=== PATIENT | female | born 1940 ===

== ENCOUNTER 2018-05-22 06:26 | Inpatient (IN) | payer OTHER ==
[2018-05-22 06:59] VITALS: BMI 23.3
--- NOTE | 2018-05-22 07:25 | PDOC ---
History of Present Illness - General Chief Complaint: Back Pain Stated Complaint: FALL Time Seen by Provider: 05/22/18 07:15 - History of Present Illness Initial Comments: 78 year old female with PMH of kidney transplant (2003), "heart murmur", dementia, and NIDDM presenting with fall from bed at home. Per son at home she has been more confused over the past few weeks with weakness. They deny infectious symptoms at home including fevers, chills, nausea, vomiting, urinary symptoms or other issues. Son at home states that she has been overall weaker at home and has fallen a few times and has had worsening memory and overall mental status over the the past few weeks a year. 05/22/18 08:51 Past History - Past Medical History Allergies/Adverse Reactions: Allergies Allergy/AdvReac Type Severity Reaction Status Date / Time RENU Inhibitors Allergy Verified 05/22/18 06:56 Home Medications: Ambulatory Orders Unobtainable 05/22/18 - Suicide/Smoking/Psychosocial Hx Smoking History: Smoker current status UNK Have you smoked in the past 12 months: No Information on smoking cessation initiated: No Hx Alcohol Use: No Drug/Substance Use Hx: No Review of Systems - Review of Systems Constitutional: No: Chills, Diaphoresis, Fever, Loss of Appetite HEENTM: No: Eye Pain, Blurred Vision, Tearing Respiratory: No: Cough, Shortness of Breath, Wheezing Cardiac (ROS): No: Chest Pain, Edema, Irregular Heart Rate ABD/GI: No: Diarrhea, Nausea, Poor Appetite, Vomiting : No: Burning, Dysuria, Hematuria Musculoskeletal: Yes: Back Pain. No: Joint Pain, Joint Swelling Integumentary: Yes: Lesions (sacral decub). No: Bruising Psychiatric: Yes: Other (dementia). No: Change in Appetite Hematologic/Lymphatic: No: Anemia, Blood Clots, Easy Bleeding *Physical Exam - Vital Signs Last Vital Signs Temp Pulse Resp BP Pulse Ox 98.0 F 80 18 168/119 H 99 05/22/18 06:54 05/22/18 06:54 05/22/18 06:54 05/22/18 06:54 05/22/18 06:54 - Physical Exam General Appearance: Yes: Appropriately Dressed, Thin. No: Apparent Distress HEENT: positive: EOMI, SHAHRZAD, Normal ENT Inspection, Normal Voice Neck: positive: Trachea midline, Normal Thyroid, Supple. negative: Tender, Rigid Respiratory/Chest: positive: Lungs Clear, Normal Breath Sounds. negative: Chest Tender, Respiratory Distress, Accessory Muscle Use Cardiovascular: positive: Regular Rhythm, Regular Rate Moderate Sedation - Procedure Monitoring Vital Signs: Procedure Monitoring Vital Signs Temperature 98.0 F 05/22/18 06:54 Pulse Rate 80 05/22/18 06:54 Respiratory Rate 18 05/22/18 06:54 Blood Pressure 168/119 H 05/22/18 06:54 O2 Sat by Pulse Oximetry (%) 99 05/22/18 06:54 ED Treatment Course - LABORATORY CBC & Chemistry Diagram: 05/22/18 07:52 05/22/18 07:52 Medical Decision Making - Medical Decision Making 78 year old female with worsening mental status and falls over the past few weeks presenting after being found down at bedside. Labs and Imaging WNL but patient very weak overall. UA pending. EKG demonstrating rate 78, MO 1990, QRS 116, and QTc 508 without acute ischemic changes. Will admit patient for further workup for the weakness and falls. 05/22/18 09:56 *DC/Admit/Observation/Transfer Diagnosis at time of Disposition: Weakness Falls Qualifiers: Encounter type: initial encounter Qualified Code(s): W19.XXXA - Unspecified fall, initial encounter Failure to thrive Qualifiers: Failure to thrive age range: in adult Qualified Code(s): R62.7 - Adult failure to thrive - Discharge Dispostion Condition at time of disposition: Stable Decision to Admit order: Yes - Referrals - Patient Instructions - Post Discharge Activity
[2018-05-22 08:11] LABS: BASO % 0.5 % (0-2.0); EOS % 1.1 % (0-4.5); HEMATOCRIT 42.2 % (32.4-45.2); HEMOGLOBIN 14.2 GM/dL (10.7-15.3); LYMPH % 13.7 % (8-40); MCH 29.1 pg (25.7-33.7); MCHC 33.6 g/dl (32.0-36.0); MEAN CELL VOLUME 86.6 fl (80-96); MEAN PLT VOLUME 8.1 fl (7.5-11.1); MONO % 6.8 % (3.8-10.2); NEUT % 77.9 % (42.8-82.8); PLATELET COUNT 246 K/MM3 (134-434); RBC 4.87 M/mm3 (3.60-5.2); RDW 15.1 % (11.6-15.6)
[2018-05-22 08:49] LABS: ALBUMIN 3.2 g/dl (3.4-5.0); ALK PHOS 98 U/L (45-117); ANION GAP 9 MMOL/L (8-16); BILIRUBIN,TOTAL 0.5 mg/dL (0.2-1); BLOOD UREA NITROGEN 16 mg/dL (7-18); CALCIUM 9.3 mg/dL (8.5-10.1); CHLORIDE 109 mmol/L (98-107); CO2 24 mmol/L (21-32); CREATININE 0.6 mg/dL (0.55-1.3); GLUCOSE,RANDOM 88 mg/dL (74-106); POTASSIUM 3.7 mmol/L (3.5-5.1); SGOT/AST 24 U/L (15-37); SGPT/ALT 16 U/L (13-61); SODIUM 142 mmol/L (136-145); TOT PROT 7.6 g/dl (6.4-8.2)
[2018-05-22 08:50] LABS: INR 1.12 (0.83-1.09); PROTHROMBIN TIME (PATIENT) 13.2 SEC (9.7-13.0)
--- NOTE | 2018-05-22 09:05 | PDOC ---
Attending Attestation - Resident Resident Name: Abiel Tam - ED Attending Attestation I have performed the following: I have examined & evaluated the patient, The case was reviewed & discussed with the resident, I agree w/resident's findings & plan, Exceptions are as noted - HPI HPI: 05/22/18 09:54 78 year old female c/ hx of renal transplant on cellcept and prograft, DM, "cardiac condition" on afib and metoprolol, ?dementia? presents with found down on ground. Patient is a poor historian. Obtained from the son on the phone. No recent illnesses. Pt lives at home. When son went into her bedroom, found down on the ground. Pt is c/o of lower back pain. No other complaints. - Physicial Exam PE: 05/22/18 09:58 GENERAL: Awake, alert, in no acute distress HEAD: No signs of trauma EYES: EOMI, sclera anicteric, conjunctiva clear ENT: Auricles normal inspection, hearing grossly normal, nares patent, Moist mucosa NECK: Normal ROM, supple. No c-spine tenderness. LUNGS: Breath sounds equal, clear to auscultation bilaterally. No wheezes, and no crackles HEART: Regular rate and rhythm, normal S1 and S2, no murmurs, rubs or gallops ABDOMEN: Soft, nontender, No guarding, no rebound. No masses EXTREMITIES: Normal range of motion, no edema. No clubbing or cyanosis. No cords, erythema, or tenderness BACK: mild TTP ~L4-L5. no stepoffs appreciated. PELVIS: stable and nontender. FROM of bilateral hips. NEUROLOGICAL: Cranial nerves II through XII grossly intact. Normal speech SKIN: Warm, Dry, normal turgor, no rashes or lesions noted. - Medical Decision Making 05/22/18 10:00 Vital Signs Temp Pulse Resp BP Pulse Ox 98.0 F 80 18 168/119 H 99 05/22/18 06:54 05/22/18 06:54 05/22/18 06:54 05/22/18 06:54 05/22/18 06:54 78 year old female with complex medical problems p/w found down on ground. Need to evaluate for trauma with head CT and CT c-spine. Lumbosacral and pelvis radiograph. Also need to evaluate for rhado. Unknown how long on ground. Labs to r/o other etiologies ie metabolic disarray, UTI, etc. Ultimately, given inability to ambulate and son having difficulties caring for patient, will need admission for at least PT and possible NH placement. 05/22/18 10:36 Bilateral pelvic rami fracture and some compression lumbar fractures noted on imaging. Will need spine surgery and ortho consultation. Pain control. Will order pelvis CT for further clarification of pelvis. Pt needs to be admitted. Hemodynamically stable. CBC, BMP 05/22/18 07:52 05/22/18 07:52 CMP Sodium 142 mmol/L (136-145) 05/22/18 07:52 Potassium 3.7 mmol/L (3.5-5.1) 05/22/18 07:52 Chloride 109 mmol/L (98-107) H 05/22/18 07:52 Carbon Dioxide 24 mmol/L (21-32) 05/22/18 07:52 Anion Gap 9 MMOL/L (8-16) 05/22/18 07:52 BUN 16 mg/dL (7-18) 05/22/18 07:52 Creatinine 0.6 mg/dL (0.55-1.3) 05/22/18 07:52 Creat Clearance w eGFR > 60 (>60) 05/22/18 07:52 Random Glucose 88 mg/dL (74-106) 05/22/18 07:52 Calcium 9.3 mg/dL (8.5-10.1) 05/22/18 07:52 Total Bilirubin 0.5 mg/dL (0.2-1) 05/22/18 07:52 AST 24 U/L (15-37) 05/22/18 07:52 ALT 16 U/L (13-61) 05/22/18 07:52 Alkaline Phosphatase 98 U/L (45-117) 05/22/18 07:52 Troponin I 0.04 ng/ml (0.00-0.05) 05/22/18 07:52 Total Protein 7.6 g/dl (6.4-8.2) 05/22/18 07:52 Albumin 3.2 g/dl (3.4-5.0) L 05/22/18 07:52 Heart Score/ECG Review #1 ECG reviewed & interpreted by me at: 07:50 05/22/18 09:03 NSR 78, left axis deviation, low voltage QRS, +LVH, QTC 508 msec
[2018-05-22] MEDS ORDERED: morphine CARPU-JECT 2 MG/1 ML DISP.SYRIN IVPUSH ONE (10:48)
[2018-05-22] MEDS ORDERED: MORPHINE SULFATE 2 MG/ML VIAL ONE (11:04)
[2018-05-22 11:20] LABS: URINE APPEARANCE CLEAR; URINE BILIRUBIN NEGATIVE (<2.0 mg/dL); URINE COLOR YELLOW; URINE GLUCOSE (UA) NEGATIVE (NEGATIVE); URINE KETONE NEGATIVE (NEGATIVE); URINE LEUK ESTERASE NEGATIVE (NEGATIVE); URINE NITRITE NEGATIVE (NEGATIVE); URINE PROTEIN 3+ (NEGATIVE); URINE UROBILINOGEN NEGATIVE mg/dL (0.2-1.0)
[2018-05-22 11:25] LABS: EPI CELLS RARE /HPF (FEW); URINE MUCUS RARE
--- NOTE | 2018-05-22 12:51 | HP ---
CHIEF COMPLAINT: Weakness / Fall PCP: Dr. Aldo Corbett (Nephro) HISTORY OF PRESENT ILLNESS: 78 y/o F w/PMH of kidney transplant (2003), dementia, NIDDM, (possible Afib) presents to the ER for fall and weakness. History was taken from pt although some history was difficult to obtain due to her dementia and some history was taken from other notes. In ER she was reported to have been found on floor by her son this morning and had been getting more weak and confused over the past few weeks. According to the pt she fell 2 days ago but does not remember if she lost consciousness or if she hit her head. She does reports not feeling light-headed or dizzy, no CP, or heart racing at that time. She does not remember the events after the fall. She reports increased urinary frequency and dysuria for 10 days and weakness along this time too. She denies N/V/F/C, abd pain, CP, SOB, cough, light-headedness, blood in stool and reports having her regular BM once daily. She is AAOx2. Son is not at bedside at the time of interview and there is no contact phone number on the chart for son. ER course was notable for: (1) Morphine, CXR, Hip CT, L-spine CT, C-Spine CT, Head CT (2) (3) PAST MEDICAL HISTORY: kidney transplant (2003), dementia, NIDDM, (possible Afib ) - from other notes PAST SURGICAL HISTORY: unable to obtain Social History: Smoking: denies ever smoking Alcohol: denies Drugs: denies Family History: unable to obtain Allergies RENU Inhibitors Allergy (Verified 05/22/18 06:56) HOME MEDICATIONS: Home Medications Medication Instructions Recorded Unobtainable 05/22/18 REVIEW OF SYSTEMS CONSTITUTIONAL: +generalized weakness Absent: fever, chills CARDIOVASCULAR: Absent: chest pain, palpitations, irregular heart rate, lightheadedness RESPIRATORY: Absent: cough, shortness of breath GASTROINTESTINAL: Absent: abdominal pain, nausea, vomiting, diarrhea, constipation, hematochezia GENITOURINARY: +dysuria, frequency Absent: hematuria MUSCULOSKELETAL: +chronic joint pain, no new pains NEUROLOGIC: Absent: headache, dizziness PHYSICAL EXAMINATION Vital Signs - 24 hr 05/22/18 06:54 Temperature 98.0 F Pulse Rate 80 Respiratory 18 Rate Blood Pressure 168/119 H O2 Sat by Pulse 99 Oximetry (%) GENERAL: Awake, alert, and oriented x2 (person and place). In no acute distress. HEAD: Normal with no signs of trauma. EYES: Pupils equal, round and reactive to light. No lid lag. EARS, NOSE, THROAT: Ears normal, nares patent LUNGS: Breath sounds equal, clear to auscultation bilaterally. No wheezes, and no crackles. No accessory muscle use. HEART: Regular rate and rhythm, normal S1 and S2 ABDOMEN: Soft, nontender, not distended, normoactive bowel sounds MUSCULOSKELETAL: No calf tenderness. No knee, ankle or hip pain on palpation. No pain at hip or knees with passive ROM. No pain with log rolling of thighs. LOWER EXTREMITIES: warm, well-perfused. No calf tenderness. PSYCHIATRIC: Cooperative. SKIN: Warm, dry Laboratory Results - last 24 hr 05/22/18 05/22/18 05/22/18 07:47 07:52 07:52 WBC 10.0 RBC 4.87 Hgb 14.2 Hct 42.2 MCV 86.6 MCH 29.1 MCHC 33.6 RDW 15.1 Plt Count 246 MPV 8.1 Absolute Neuts (auto) 7.8 Neutrophils % 77.9 Lymphocytes % 13.7 Monocytes % 6.8 Eosinophils % 1.1 Basophils % 0.5 Nucleated RBC % 0 PT with INR 13.20 H INR 1.12 H Sodium 142 Potassium 3.7 Chloride 109 H Carbon Dioxide 24 Anion Gap 9 BUN 16 Creatinine 0.6 Creat Clearance w eGFR > 60 Random Glucose 88 Calcium 9.3 Total Bilirubin 0.5 AST 24 ALT 16 Alkaline Phosphatase 98 Creatine Kinase 178 Creatine Kinase Index 1.1 CK-MB (CK-2) 2.0 Troponin I 0.04 Total Protein 7.6 Albumin 3.2 L Urine Color Urine Appearance Urine pH Ur Specific [place] Urine Protein Urine Glucose (UA) Urine Ketones Urine Blood Urine Nitrite Urine Bilirubin Urine Urobilinogen Ur Leukocyte Esterase Urine WBC (Auto) Urine RBC (Auto) Ur Epithelial Cells Urine Mucus 05/22/18 11:02 WBC RBC Hgb Hct MCV MCH MCHC RDW Plt Count MPV Absolute Neuts (auto) Neutrophils % Lymphocytes % Monocytes % Eosinophils % Basophils % Nucleated RBC % PT with INR INR Sodium Potassium Chloride Carbon Dioxide Anion Gap BUN Creatinine Creat Clearance w eGFR Random Glucose Calcium Total Bilirubin AST ALT Alkaline Phosphatase Creatine Kinase Creatine Kinase Index CK-MB (CK-2) Troponin I Total Protein Albumin Urine Color Yellow Urine Appearance Clear Urine pH 5.0 Ur Specific [place] 1.027 Urine Protein 3+ H Urine Glucose (UA) Negative Urine Ketones Negative Urine Blood 3+ H Urine Nitrite Negative Urine Bilirubin Negative Urine Urobilinogen Negative Ur Leukocyte Esterase Negative Urine WBC (Auto) 5 Urine RBC (Auto) 47 Ur Epithelial Cells Rare Urine Mucus Rare EKG: NSR @ 78 bpm. LAD. LVH. QTc 508 ms Imaging: C-spine CT, Head CT, CXR, Hip Pelvis XR, L-Spine XR Reviewed. Hip Pelvis XR: Fracture at R superior and inferior pubic rami. Possible L inferior pubic ramus fracture. L-Spine CT: multiple compression fractures likely chronic. Abd/Pelvis CT: Old fractures of R superior and inferior pubic rami. No evidence of acute fracture. ASSESSMENT/PLAN: 78 y/o F w/PMH of kidney transplant (2003), dementia, NIDDM, (possible Afib) presents to the ER for fall and weakness. -Weakness and AMS -Secondary to possible UTI -Pt's mental status has improved since first being brought in. -F/u UCx, UA with RBCs but negative for signs of infection at this time. -F/u TSH, B12 levels -PT -Pelvis fractures -Chronic, Ortho on board, follow ortho recs -Pain control with tylenol -L-spine compression -Multiple compression fractures likely chronic -Neurosurgery consulted, follow recs -Pain control with tylenol -Pericardial effusion seen on abd/pelvis CT (small pericardial effusion) -Echo -Hx of kidney transplant -Dr. Aldo Corbett is her dry wall applicator -attempted to call office multiple times for further information regarding pt but no answer -c/w tacrolimus and mycophenolate -HTN -c/w diltiazem ER 180 mg and metoprolol 50 mg bid -Diabetes -BGMs ACHS, ISS -Hx of Urinary retention -c/w flomax 0.4 mg and bethanecol 25 mg -DVT ppx -heparin 5000 units sq q8h -FEN -No fluids at this time -Monitor electrolytes -Soft diet -Dispo: Admit pt to m/s Visit type - Emergency Visit Emergency Visit: Yes ED Registration Date: 05/22/18 Care time: The patient presented to the Emergency Department on the above date and was hospitalized for further evaluation of their emergent condition. - New Patient This patient is new to me today: Yes Date on this admission: 05/22/18 - Critical Care Critical Care patient: No
--- NOTE | 2018-05-22 13:12 | CONSULT ---
Consult - text type - Consultation Consultation Note: ORTHOPEDIC SURGERY CONSULTATION NOTE Department of Orthopedic Surgery HISTORY OF PRESENT ILLNESS Roslyn Obando is a 78 year old female with a PMH of renal transplant, DM, and dementia who presents to [facility] with after a fall. The orthopedic service was consulted for a right pubic ramus fracture. The patient was found down on the ground by her son. The patient is a poor historian. History was obtained by the patient and the patient's record. The patient notes pain in the back and right hip. Denies numbness, tingling or other constitutional complaints. The patient lives with her son. FAMILY HISTORY Unknown REVIEW OF SYMPTOMS A twelve-point review of systems was performed and was negative except as noted in HPI. PHYSICAL EXAM Constitutional: Alert. Confused but able to follow commands. No acute distress. Neck and Back: No cervical tenderness to palpation. Tenderness to palpation over lumbar paralspinal muscles. No midline tenderness or step-offs. Right Upper Extremity: No tenderness to palpation. Full passive and active ROM, free from pain. 2+ radial pulses; Cap refill brisk. Left Upper Extremity: No tenderness to palpation. Full passive and active ROM, free from pain. 2+ radial pulses; Cap refill brisk. Right Lower Extremity: Skin warm, dry, and intact; no lesions, rashes or ulcers noted. Muscle mass equal and symmetric to contralateral side. No masses or effusions noted. No tenderness to palpation. No cords or calf tenderness. No significant calf/ankle edema. Able to straight leg raise. Negative log roll. Full passive and active ROM, free from pain. EHL/TA/GS motor intact; SILT distally; 2+ DP pulses; Cap refill brisk. Tone and reflexes normal. Left Lower Extremity: Skin warm, dry, and intact; no lesions, rashes or ulcers noted. Muscle mass equal and symmetric to contralateral side. No masses or effusions noted. No tenderness to palpation. No cords or calf tenderness. No significant calf/ankle edema. Able to straight leg raise. Negative log roll. Full passive and active ROM, free from pain. EHL/TA/GS motor intact; SILT distally; 2+ DP pulses; Cap refill brisk. Tone and reflexes normal. Active Problems Problem Status Category Onset Failure to thrive Acute Medical Falls Acute Medical Weakness Acute Medical Social History Smoking history Smoker current status UNK Hx Alcohol Use No Allergies Allergy/AdvReac Type Severity Reaction Status Date / Time RENU Inhibitors Allergy Verified 05/22/18 06:56 Vital Signs (last) Temp Pulse Resp BP Pulse Ox 98.0 F 80 18 168/119 H 99 05/22/18 06:54 05/22/18 06:54 05/22/18 06:54 05/22/18 06:54 05/22/18 06:54 Intake and Output 05/20/18 05/21/18 05/22/18 23:59 23:59 23:59 Other: Weight 140 lb Height 5 ft 5 in Body Mass Index (BMI) 23.3 Weight Measurement Method Est/Stated by Patient Laboratory 05/22/18 07:52 05/22/18 07:52 PT with INR 13.20 SEC (9.7-13.0) H 05/22/18 07:47 IMAGING I personally reviewed all radiographs, CT, and other imaging. They demonstrate a left hip cemented hemiarthoplasty in good positioning with no signs of loosening. There are right-sided chronic appearing pubic rami fractures. There is lumbar spondylosis with a acute vs chronic severe compression fracture at L1 and moderate compression fractures of L4 and L5. ASSESSMENT AND PLAN Roslyn Obando is a 78 year old female presenting status post fall with multiple lumbar vertebral compression fractures and (2) right sided pubic rami fractures. These fractures appear chronic, but an acute or subacute component can not be determined with current images available. There is no hip fracture or periprosthetic femur fracture. We have reviewed the imaging and clinical findings in detail, as well as their potential implications. - FU Neurosurgery recommendations regarding vertebral compression fractures - WBAT with assistance - Physical therapy - Pain control - DVT prophylaxis All questions were answered. Thank you for involving our team in the care of this patient. Please have patient follow up in our office in 1-2 weeks [phone].
--- NOTE | 2018-05-22 14:07 | PN ---
Teaching Attending Note Name of Resident: Rashad Luis ATTENDING PHYSICIAN STATEMENT I saw and evaluated the patient. I reviewed the resident's note and discussed the case with the resident. I agree with the resident's findings and plan as documented. SUBJECTIVE: No complaints. Unsure why she is here. Admits to fall, unclear when. Denies chest pain/palpitations/lightheadedness/HI. OBJECTIVE: Afebrile, Hemodynamically Stable Last Vital Signs Temp Pulse Resp BP Pulse Ox 98.0 F 78 18 145/98 100 05/22/18 06:54 05/22/18 13:10 05/22/18 13:10 05/22/18 13:10 05/22/18 13:10 HEENT - Atraumatic, Normocephalic. Temporal wasting. Heart - S1, S2, SM Lungs - clear to lungs. No crackles/wheeze. Abdomen - soft, non-tender. Bowel Sounds normal. Extremities - no edema, no calf tenderness. Neuro - AAO x 1-2. Tone/Power normal all 4 extremities. Laboratory Results - last 24 hr 05/22/18 05/22/18 05/22/18 07:47 07:52 07:52 WBC 10.0 RBC 4.87 Hgb 14.2 Hct 42.2 MCV 86.6 MCH 29.1 MCHC 33.6 RDW 15.1 Plt Count 246 MPV 8.1 Absolute Neuts (auto) 7.8 Neutrophils % 77.9 Lymphocytes % 13.7 Monocytes % 6.8 Eosinophils % 1.1 Basophils % 0.5 Nucleated RBC % 0 PT with INR 13.20 H INR 1.12 H Sodium 142 Potassium 3.7 Chloride 109 H Carbon Dioxide 24 Anion Gap 9 BUN 16 Creatinine 0.6 Creat Clearance w eGFR > 60 Random Glucose 88 Calcium 9.3 Total Bilirubin 0.5 AST 24 ALT 16 Alkaline Phosphatase 98 Creatine Kinase 178 Creatine Kinase Index 1.1 CK-MB (CK-2) 2.0 Troponin I 0.04 Total Protein 7.6 Albumin 3.2 L Urine Color Urine Appearance Urine pH Ur Specific [place] Urine Protein Urine Glucose (UA) Urine Ketones Urine Blood Urine Nitrite Urine Bilirubin Urine Urobilinogen Ur Leukocyte Esterase Urine WBC (Auto) Urine RBC (Auto) Ur Epithelial Cells Urine Mucus 05/22/18 11:02 WBC RBC Hgb Hct MCV MCH MCHC RDW Plt Count MPV Absolute Neuts (auto) Neutrophils % Lymphocytes % Monocytes % Eosinophils % Basophils % Nucleated RBC % PT with INR INR Sodium Potassium Chloride Carbon Dioxide Anion Gap BUN Creatinine Creat Clearance w eGFR Random Glucose Calcium Total Bilirubin AST ALT Alkaline Phosphatase Creatine Kinase Creatine Kinase Index CK-MB (CK-2) Troponin I Total Protein Albumin Urine Color Yellow Urine Appearance Clear Urine pH 5.0 Ur Specific [place] 1.027 Urine Protein 3+ H Urine Glucose (UA) Negative Urine Ketones Negative Urine Blood 3+ H Urine Nitrite Negative Urine Bilirubin Negative Urine Urobilinogen Negative Ur Leukocyte Esterase Negative Urine WBC (Auto) 5 Urine RBC (Auto) 47 Ur Epithelial Cells Rare Urine Mucus Rare Current Medications Generic Name Dose Route Start Last Admin Trade Name Freq PRN Reason Stop Dose Admin Acetaminophen 650 mg 05/22/18 13:42 Tylenol - PO Q6H PRN PAIN 1-3 Heparin Sodium (Porcine) 5,000 unit 05/22/18 14:00 Heparin - SQ TID [facility] Insulin Aspart 1 vial 05/22/18 16:30 Novolog Vial Sliding Scale - SQ ACHS [facility] Protocol Home Medications Medication Instructions Recorded Bethanechol Chloride 25 mg PO 05/22/18 Diltiazem HCl [Diltiazem 24Hr ER] 180 mg PO DAILY 05/22/18 Metoprolol Tartrate 50 mg PO BID 05/22/18 Mycophenolate Mofetil [Cellcept -] 250 mg PO BID 05/22/18 Sitagliptin Phosphate [Januvia] 25 mg PO DAILY 05/22/18 Tacrolimus Anhydrous [Prograf] 0.5 mg PO Q12H 05/22/18 Tamsulosin HCl [Flomax] 0.4 mg PO 05/22/18 ASSESSMENT AND PLAN: 78 year old female poor historian with no family at bedside with reported history of Atrial Fibrillation (not on AC), history of Renal Transplant on Tacrolimus and Mycophenolate, DM2, presents with fall (unclear timing), dysuria , and urinary frequency. No fever/chills/nausea/vomiting/diarrhea. 1. Ambulatory Dysfunction/Fall XRay Pelvis/Hip - R superior and inferior rami fractures, L inferior pubic rami fracture CT Head - no acute intracranial findings CXR - calcified tortuous aorta, large heart CT C Spine - Mild DJD, No fracture. LS XRay - compression fractures L1/4/5 CT L/S Spine - Multiple compression fractures, likely chronic. Ortho eval - possible acute component on old pubic rami fractures - rec WBAT with assistance, pain management, PT eval. 2. Compression Fractures L1/L4/L5 Unclear acuity, likely chronic as per CT read. Neurosurgery to evaluate. No back pain or neurological deficit. 3. Encephalopathy ?Acuity No family at bedside to give history Will try to obtain collateral history. CT Brain - no acute findings. Will send B12, TSH, and RPR. Urinalysis with reflex to Culture requested. 3. DM 2 - hold Sitagliptin, maintain on sliding scale. 4. Vague/Unclear Hx Atrial Fibrillation - Continue Metoprolol and Diltiazem. Not on AC. 5. History of Urinary Retention - Continue Tamsulosin, Bethanecol. 6. Cardiomegaly/Pericardial Effusion on CT - will request Echo. 7. HTN - appears uncontrolled - will resume Metoprolol and Diltiazem - Monitor BP. 8. AAA - 4cm - to be monitored as out-patient. DVT Px - Heparin SQ
[2018-05-22] MEDS ORDERED: HEPARIN NA (PORCINE) 5,000 UNITS/ML 1ML VIAL ONE (14:21)
[2018-05-22] MEDS: HEPARIN NA (PORCINE) 5,000 UNITS/ML 1ML VIAL SQ SCH ×2 (14:22→23:09)
[2018-05-22] MEDS ORDERED: hydrALAZINE HCL 20 MG/ML VIAL IVPUSH ONE (16:15)
--- NOTE | 2018-05-22 16:17 | PN ---
Progress Note (short form) - Note Progress Note: NEUROSURGERY CONSULT DICTATED S/p mechanical fall from bed with c/o LBP. H/o ? kidney transplant (2003), dementia, NIDDM. According to the pt she fell 2 days ago. Denies light- headedness or dizziness, CP, SOB. c/o increased urinary frequency and dysuria for 10 days and weakness . She denies F/C. Poor historian. Denies being in pain right now. PE: T 98.9, AF, 169/90, now 190's/100's HEENT- NC/AT; Neck- supple; Cor- Irreg; Lungs- CTA; Abd- benign; Ext- no sign of DVT A/A/x1 [id number]; Motor- 4+-5 b UE/LE; Sensation- intact LT; decreased distal vibratory sensation; DTR- 3+ UE, 2+ patellar, 1+ B ankles; Cerebellar- no tremor Head CT- moderate to marked periventricular small vessel dz; mild atrophy; no fx ; no bleed LS spine CT- chronic marked L1 compression fx with mild sup > inf endplate retropulsion and mild-moderate stenosis; mild L4 and L5 compression deformity; no associated paravertebral soft tissue edema to suggest acute fx; DDD with moderate stenosis L4-5 > L5-S1 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
[2018-05-22] MEDS ORDERED: hydrALAZINE HCL 20 MG/ML VIAL IVPUSH PRN (16:47)
[2018-05-22] MEDS ORDERED: METOPROLOL TARTRATE 50 MG TABLET (FP) PO SCH ×2 (16:51→22:00)
[2018-05-22] MEDS ORDERED: METOPROLOL TARTRATE 50 MG TABLET (FP) PO ONE (17:00)
--- NOTE | 2018-05-22 17:10 | RAPID ---
Physical Examination Vital Signs: Vital Signs Temperature 98.9 F 05/22/18 14:17 Pulse Rate 78 05/22/18 14:17 Respiratory Rate 18 05/22/18 14:17 Blood Pressure 169/90 05/22/18 14:17 O2 Sat by Pulse Oximetry (%) 100 05/22/18 14:17 Labs: CBC, BMP 05/22/18 07:52 05/22/18 07:52 Rapid Response - Rapid Response Assessment: Rapid response called. Arrived to evaluate the patient. Pt had been noted with elevated blood pressures and during attempt to get in contact with the son to verify if home meds had been given prior to admission, pressure was noted to have systolic pressure in the 180s and informed heart rate fluctuated between 80s and 130s. Exam Pleasantly dimented, no acute distress Lungs CTA no wheezes Regular rate and rythm, no murmurs noted abdomen soft nontender Unable to contact son as contact info not in the EMR Presumed home meds were not given as patient arrived in ED very early this morning after being found first thing this morning on the ground Will give home medications Diltiazem 180 mg PO and Lopressor 50 mg PO PM dose early and reevaluate in 1 hour If pressure does not lower, will push 5mg IV Hydralazine and consider transfer to telemetry Pt currently stable with no complaints Of note, patient transported up from ED without IV access which was obtained by nursing staff during rapid response. Wrap with coband in attempt to prevent patient from removing as pt is a risk to remove her IV with hx of Dimentia
[2018-05-22] MEDS: INSULIN SLIDING SCALE (NOVOLOG) 1 VIAL SQ SCH ×2 (17:57→23:08)
[2018-05-22] MEDS: LIDOCAINE 5% TOPICAL PATCH TP SCH (17:57)
[2018-05-22] MEDS ORDERED: PT OWN MED DRAWER 7, Y5N ONE (21:12)
[2018-05-22] MEDS: METOPROLOL TARTRATE 50 MG TABLET (FP) PO SCH (23:07)
[2018-05-22] MEDS: BETHANECHOL CHLORIDE 25 MG TABLET PO SCH (23:07)
[2018-05-22] MEDS: MYCOPHENOLATE MOFETIL 250 MG CAPSULE PO SCH (23:09)
[2018-05-22] MEDS: LIDOCAINE PATCH REMOVAL MC SCH (23:09)
[2018-05-22] MEDS: TACROLIMUS 0.5 MG CAPSULE PO SCH (23:09)
[2018-05-22] MEDS: ACETAMINOPHEN 325 MG TABLET (FP) PO PRN (23:13)
[2018-05-23] MEDS ORDERED: PT OWN MED DRAWER 7, Y5N ONE ×3 (05:58→11:52)
[2018-05-23 06:26] LABS: EOS % 2.6 % (0-4.5); HEMATOCRIT 39.7 % (32.4-45.2); HEMOGLOBIN 13.5 GM/dL (10.7-15.3); MCH 29.1 pg (25.7-33.7); MCHC 33.9 g/dl (32.0-36.0); MEAN CELL VOLUME 85.7 fl (80-96); MONO % 5.1 % (3.8-10.2); NEUT % 77.3 % (42.8-82.8); PLATELET COUNT 263 K/MM3 (134-434); RBC 4.63 M/mm3 (3.60-5.2)
[2018-05-23] MEDS: HEPARIN NA (PORCINE) 5,000 UNITS/ML 1ML VIAL SQ SCH ×3 (06:31→22:30)
[2018-05-23] MEDS: BETHANECHOL CHLORIDE 25 MG TABLET PO SCH ×3 (06:31→22:33)
[2018-05-23] MEDS: INSULIN SLIDING SCALE (NOVOLOG) 1 VIAL SQ SCH ×4 (06:32→22:32)
[2018-05-23 06:58] LABS: ALBUMIN 3.3 g/dl (3.4-5.0); ALK PHOS 97 U/L (45-117); ANION GAP 9 MMOL/L (8-16); BLOOD UREA NITROGEN 14 mg/dL (7-18); CALCIUM 9.1 mg/dL (8.5-10.1); CHLORIDE 106 mmol/L (98-107); CO2 27 mmol/L (21-32); CREATININE 0.6 mg/dL (0.55-1.3); GLUCOSE,RANDOM 92 mg/dL (74-106); MAGNESIUM 1.9 mg/dL (1.8-2.4); PHOSPHOROUS 3.4 mg/dL (2.5-4.9); POTASSIUM 3.8 mmol/L (3.5-5.1); SGOT/AST 24 U/L (15-37); SGPT/ALT 15 U/L (13-61); SODIUM 142 mmol/L (136-145); TOT PROT 7.6 g/dl (6.4-8.2)
[2018-05-23] MEDS: TAMSULOSIN HCL 0.4 MG CAP PO SCH (09:04)
--- NOTE | 2018-05-23 09:08 | CONS ---
DATE OF CONSULTATION: 05/22/2017 CHIEF COMPLAINT: Status post mechanical fall with x-ray evidence of lumbar fracture. HISTORY OF PRESENT ILLNESS: The patient is a 78-year-old right-handed female with history of dementia, diabetes, and a renal transplant, who was brought in by her family after a fall about 2 days earlier. She had reportedly fallen from her bed and landed on her back. Presently, she complains of some intermittent lower back pain, but upon further questioning, might have fallen much more frequently than that one episode. She denies chest pain and shortness of breath. She did have increased urinary frequency and dysuria of about 10 days' duration with generalized weakness. There is no fever or chills. The patient is an extremely poor historian because of her dementia. There is no bowel or bladder incontinence, reportedly. PAST MEDICAL HISTORY: Significant for diabetes, renal transplant, dementia, and hypertension. MEDICATIONS: Flomax; Tylenol; subcutaneous heparin; Lopressor; Cardizem; CellCept; Prograf; insulin; and urecholine. There are allergies to RENU INHIBITORS. SOCIAL HISTORY: She does not smoke or drink. She lives at home, reportedly. She is retired. REVIEW OF SYSTEMS: Otherwise negative for other major constitutional, head, neck, cardiovascular, pulmonary, gastrointestinal, genitourinary, endocrinologic, neurologic, or psychological problems, except for the above. PHYSICAL EXAMINATION: Vital Signs: Temperature is 98.9, recorded blood pressure is 169/90, but at the time of examination, was about 190/100. Pulse rate is 80 and O2 saturation is 100% on room air. HEENT: Normocephalic, atraumatic, anicteric. Neck: Supple without no lymphadenopathy, no carotid bruit. Coronary: Regular rhythm. Lungs: Clear bilaterally. Abdomen: Benign. Extremities: No signs of DVT. Distal pulses are 1+. Neurologic: She is awake and alert and oriented x1. She has extremely poor memory. She has an occasional stuttering speech, but no other focal deficit. Cranial nerve examination is intact. Motor examination shows 4+/5 to 5/5 strength of the upper and lower extremities bilaterally. Sensory examination is grossly intact to light touch. She has decreased distal vibratory sensation. Deep tendon reflexes are 3+ in upper extremities and 1+ at the patellar and diminished at the ankles bilaterally. It is difficult to fully assess her long tract sign. Cerebellar examination demonstrated no resting tremor. LABORATORY EXAMINATION: Sodium is 142 and potassium 3.7, BUN 16 and creatinine 0.6, glucose is 93. Albumin is 3.2. LFTs normal. INR is 1.12. White blood cell count is 10, hemoglobin is 14.2, and platelet count is 446,000. Urinalysis shows slight WBCs and 47 RBCs. Leukocyte esterase was negative. There is 3+ blood and 3+ protein. CT scan of the head demonstrated her to have no acute fracture or bleed. There is mild cerebral atrophy. There is moderate to marked periventricular small vessel disease bilaterally. There are no signs of hydrocephalus. CT scan of the lumbar spine demonstrated probably a chronic marked L1 compression fracture with both superior endplate retropulsion, which, again, appears to be chronic. There is no paravertebral edema or hematoma. There is also mild compression deformity at L4 and L5. There is moderate L4-L5 and L5-S1 stenosis secondary to osteophytes secondary to hypertrophy and broad-based disk bulge. IMPRESSION: 1. Probably chronic L1 greater than L4 and L5 osteoporotic compression fracture. 2. Dementia. 3. Diabetes. 4. History of renal transplant. 5. Rule out urinary tract infection. RECOMMENDATION: The patient complains of some back pain. Presently, she does not appear overly uncomfortable and she is able to move around. She is a poor historian, but likely has fallen more frequently than she reported. The fractures as visualized on CT scan appear to be more chronic in nature, given the relative paucity of associated edema or soft tissue swelling. No neurosurgical intervention is indicated, given her relatively intact neurological examination from the lumbar spine standpoint. She does have hyperreflexia in the upper extremities greater than lower extremities, which could reflect cervical stenosis or her cerebrovascular disease. I have taken the liberty of putting her on Lidoderm patches for topical pain control. I do not recommend neurosurgical intervention, as stated earlier. Pain Management consult could be considered if her pain persists. Vertebral could also be considered, even though I believe these to be mostly chronic fracture. There is a slight possibility there may be an acute component associated with a chronic fracture, but once again, there are no paravertebral edema to indicate such at this time. PAOLA DEL ANGEL M.D. [id number]
[2018-05-23] MEDS: METOPROLOL TARTRATE 50 MG TABLET (FP) PO SCH ×2 (11:01→22:31)
[2018-05-23] MEDS: MYCOPHENOLATE MOFETIL 250 MG CAPSULE PO SCH ×2 (11:02→22:29)
[2018-05-23] MEDS: LIDOCAINE 5% TOPICAL PATCH TP SCH (11:03)
[2018-05-23] MEDS: TACROLIMUS 0.5 MG CAPSULE PO SCH ×2 (11:03→22:32)
--- NOTE | 2018-05-23 11:17 | PN ---
Progress Note (short form) - Note Progress Note: ORTHOPEDIC SURGERY PROGRESS NOTE Department of Orthopedic Surgery SUBJECTIVE Rapid response called overnight. Patient with no complaints currently. Tolerating oral intake (was able to eat 30% of her meal this morning as per nurse). Pain control improving. Intake & Output 05/21/18 05/22/18 05/23/18 23:59 23:59 23:59 Intake Total 200 400 Balance 200 400 Intake: Oral 200 400 Other: Voiding Method Diaper # Unmeasured Voids Void 0 Bowel Movement No Weight 140 lb Height 5 ft 5 in Body Mass Index (BMI) 23.3 Weight Measurement Method Est/Stated by Patient Active Medications Generic Name Dose Route Start Last Admin Trade Name Freq PRN Reason Stop Dose Admin Acetaminophen 650 mg 05/22/18 13:42 05/22/18 23:13 Tylenol - PO 650 mg Q6H PRN Administration PAIN 1-3 Bethanechol Chloride 25 mg 05/22/18 22:00 05/23/18 06:31 Urecholine - PO 25 mg TID NED Administration Diltiazem HCl 180 mg 05/23/18 10:00 05/23/18 11:01 Cardizem Cd - PO 180 mg DAILY NED Administration Heparin Sodium (Porcine) 5,000 unit 05/22/18 14:00 05/23/18 06:31 Heparin - SQ 5,000 unit TID NED Administration Insulin Aspart 1 vial 05/22/18 16:30 05/23/18 06:32 Novolog Vial Sliding Scale - SQ Not Given ACHS [facility] Protocol Lidocaine 1 patch 05/22/18 16:30 05/23/18 11:03 Lidoderm Patch - TP 1 patch DAILY NED Administration Metoprolol Tartrate 50 mg 05/22/18 22:00 05/23/18 11:01 Lopressor - PO 50 mg BID NED Administration Miscellaneous 1 each 05/22/18 22:00 05/22/18 23:09 Lidoderm Patch Removal MC 1 each DAILY@2200 NED Administration Mycophenolate Mofetil 250 mg 05/22/18 22:00 05/23/18 11:02 Cellcept - PO 250 mg BID NED Administration Tacrolimus 0.5 mg 05/22/18 22:00 05/23/18 11:03 Prograf PO 0.5 mg BID NED Administration Tamsulosin HCl 0.4 mg 05/23/18 08:30 05/23/18 09:04 Flomax - PO 0.4 mg DAILY@0830 NED Administration Vital Signs (last) Temp Pulse Resp BP Pulse Ox 98.4 F 73 24 H 186/86 H 97 05/23/18 09:02 05/23/18 10:58 05/23/18 10:58 05/23/18 10:58 05/22/18 21:00 Laboratory (coagulation) PT with INR 13.20 SEC (9.7-13.0) H 05/22/18 07:47 Laboratory 05/23/18 05:50 05/23/18 05:50 PHYSICAL EXAMINATION General: Alert and able to follow commands. Not in acute distress. Lower Extremity: Left hip posterolateral incisional scar with no erythema or signs of infection. Muscle mass equal and symmetric to contralateral side. No masses or effusions noted. No tenderness to palpation. Full passive and active ROM, free from pain. Patient able to move ankle and toes. SILT distally; 2+ DP pulses; Cap refill brisk. DVT Exam: No evidence of DVT seen on physical exam; No cords or calf tenderness ; No significant calf/ankle edema. IMAGING Pelvis radiographs and CT scan reveal subacute vs chronic right sided pubic rami fractures. ASSESSMENT AND PLAN Roslyn Strickland is a 78 year old female with (1) subacute vs chronic right-sided pubic ramus fractures and (2) lumbar spondylosis with multiple vertebral compression fractures - Neurosurgery consult appreciated - No orthopedic intervention at this time - Pain control: minimize narcotic use - Monitor vitals - DVT prophylaxis - Elevate HOB, encourage oral intake - Appreciate medical management (Nutrition optimization, decubitus precautions heel/sacrum) - PT/OT; WBAT with assistance
--- NOTE | 2018-05-23 11:37 | PN ---
Progress Note (short form) - Note Progress Note: NEUROSURGERY BP trend noted over night Denies being in pain right now. PE: T 98.9, AF, 186/86 HEENT- NC/AT; Neck- supple; Cor- Irreg; Lungs- CTA; Abd- benign; Ext- no sign of DVT A/A/x1 [id number]; Motor- 4+-5 b UE/LE; Sensation- intact LT; decreased distal vibratory sensation; DTR- 3+ UE, 2+ patellar, 1+ B ankles; Cerebellar- no tremor Head CT- moderate to marked periventricular small vessel dz; mild atrophy; no fx ; no bleed LS spine CT- chronic marked L1 compression fx with mild sup > inf endplate retropulsion and mild-moderate stenosis; mild L4 and L5 compression deformity; no associated paravertebral soft tissue edema to suggest acute fx; DDD with moderate stenosis L4-5 > L5-S1 Chronic osteoporotic lumbar fractures L 1 > L4/L5 with superimposed trauma; pt denies significant pain Medical management only Doubt pt could be compliant with external orthosis (TLSO) given her dementia Safety/fall precautions If persistent axial LBP could consider vertebroplasty Neurosurgical intervention no indicated give underlying medical conditions and dementia BP control per medical team Consider cardiology input if persistent HTN
--- NOTE | 2018-05-23 14:10 | PN ---
Progress Note (short form) - Note Progress Note: SUBJECTIVE: Confused, not making sense. Denies chest pain/palpitations/ lightheadedness/HI. OBJECTIVE: Afebrile, Hemodynamically Stable Last Vital Signs Temp Pulse Resp BP Pulse Ox 99.2 F 64 24 H 170/100 97 05/23/18 13:47 05/23/18 13:57 05/23/18 13:57 05/23/18 13:57 05/22/18 21:00 General - Cachexia HEENT - Atraumatic, Normocephalic. Temporal wasting. Heart - S1, S2, SM Lungs - clear to lungs. No crackles/wheeze. Abdomen - soft, non-tender. Bowel Sounds normal. Extremities - no edema, no calf tenderness. Neuro - AAO x 1-2. Tone/Power normal all 4 extremities. MS - no spinal tenderness Laboratory Results - last 24 hr 05/22/18 05/22/18 05/22/18 16:03 17:55 23:04 WBC RBC Hgb Hct MCV MCH MCHC RDW Plt Count MPV Absolute Neuts (auto) Neutrophils % Lymphocytes % Monocytes % Eosinophils % Basophils % Nucleated RBC % Sodium Potassium Chloride Carbon Dioxide Anion Gap BUN Creatinine Creat Clearance w eGFR POC Glucometer 93 96 89 Random Glucose Calcium Phosphorus Magnesium Total Bilirubin AST ALT Alkaline Phosphatase Total Protein Albumin Vitamin B12 TSH RPR Titer 05/23/18 05/23/18 05/23/18 05:50 05:50 06:00 WBC 9.0 RBC 4.63 Hgb 13.5 Hct 39.7 MCV 85.7 MCH 29.1 MCHC 33.9 RDW 15.0 Plt Count 263 MPV 8.0 Absolute Neuts (auto) 7.0 Neutrophils % 77.3 Lymphocytes % 14.0 Monocytes % 5.1 Eosinophils % 2.6 D Basophils % 1.0 Nucleated RBC % 0 Sodium 142 Potassium 3.8 Chloride 106 Carbon Dioxide 27 Anion Gap 9 BUN 14 Creatinine 0.6 Creat Clearance w eGFR > 60 POC Glucometer Random Glucose 92 Calcium 9.1 Phosphorus 3.4 Magnesium 1.9 Total Bilirubin 1.0 AST 24 ALT 15 Alkaline Phosphatase 97 Total Protein 7.6 Albumin 3.3 L Vitamin B12 460 TSH 5.08 H RPR Titer Nonreactive 05/23/18 05/23/18 06:29 12:09 WBC RBC Hgb Hct MCV MCH MCHC RDW Plt Count MPV Absolute Neuts (auto) Neutrophils % Lymphocytes % Monocytes % Eosinophils % Basophils % Nucleated RBC % Sodium Potassium Chloride Carbon Dioxide Anion Gap BUN Creatinine Creat Clearance w eGFR POC Glucometer 85 97 Random Glucose Calcium Phosphorus Magnesium Total Bilirubin AST ALT Alkaline Phosphatase Total Protein Albumin Vitamin B12 TSH RPR Titer Current Medications Generic Name Dose Route Start Last Admin Trade Name Freq PRN Reason Stop Dose Admin Acetaminophen 650 mg 05/22/18 13:42 05/22/18 23:13 Tylenol - PO 650 mg Q6H PRN Administration PAIN 1-3 Bethanechol Chloride 25 mg 05/22/18 22:00 05/23/18 06:31 Urecholine - PO 25 mg TID NED Administration Diltiazem HCl 180 mg 05/23/18 10:00 05/23/18 11:01 Cardizem Cd - PO 180 mg DAILY NED Administration Heparin Sodium (Porcine) 5,000 unit 05/22/18 14:00 05/23/18 06:31 Heparin - SQ 5,000 unit TID NED Administration Insulin Aspart 1 vial 05/22/18 16:30 05/23/18 12:10 Novolog Vial Sliding Scale - SQ Not Given ACHS [facility] Protocol Lidocaine 1 patch 05/22/18 16:30 05/23/18 11:03 Lidoderm Patch - TP 1 patch DAILY NED Administration Metoprolol Tartrate 50 mg 05/22/18 22:00 05/23/18 11:01 Lopressor - PO 50 mg BID NED Administration Miscellaneous 1 each 05/22/18 22:00 05/22/18 23:09 Lidoderm Patch Removal MC 1 each DAILY@2200 NED Administration Mycophenolate Mofetil 250 mg 05/22/18 22:00 05/23/18 11:02 Cellcept - PO 250 mg BID NED Administration Tacrolimus 0.5 mg 05/22/18 22:00 05/23/18 11:03 Prograf PO 0.5 mg BID NED Administration Tamsulosin HCl 0.4 mg 05/23/18 08:30 05/23/18 09:04 Flomax - PO 0.4 mg DAILY@0830 NED Administration ASSESSMENT AND PLAN: 78 year old female poor historian with no family at bedside with reported history of Atrial Fibrillation (not on AC), history of Renal Transplant on Tacrolimus and Mycophenolate, DM2, presents with fall (unclear timing), dysuria , and urinary frequency. No fever/chills/nausea/vomiting/diarrhea. 1. Ambulatory Dysfunction/Fall - Need collateral history from family member ( attempted to reach son without success) XRay Pelvis/Hip - R superior and inferior rami fractures, L inferior pubic rami fracture CT Head - no acute intracranial findings. Moderate periventricular small vessel disease CXR - calcified tortuous aorta, large heart CT C Spine - Mild DJD, No fracture. LS XRay - compression fractures L1 (chronic with endplate retropulsion and mod stenosis)/L4/L5, DDD with moderate stenosis L4/5, L5/S1 CT L/S Spine - Multiple compression fractures, likely chronic. Ortho eval - possible acute component on old pubic rami fractures - rec WBAT with assistance, pain management, PT eval. 2. Compression Fractures L1/L4/L5 Unclear acuity, likely chronic as per CT read. Neurosurgery evaluated - not for acute intervention. No back pain or neurological deficit - no indication currently for vertebroplasty. 3. Encephalopathy ?Acuity No family at bedside to give history Will try to obtain collateral history. CT Brain - no acute findings. WB12 - 460 TSH 5.08, free T4 requested RPR non-reactive. Urine Cx negative. 3. DM 2 - hold Sitagliptin, maintain on sliding scale. 4. Vague/Unclear Hx Atrial Fibrillation - Continue Metoprolol and Diltiazem. Not on AC. 5. History of Urinary Retention - Continue Tamsulosin, Bethanecol. 6. Cardiomegaly/Pericardial Effusion on CT - Echo requested. 7. HTN - appears uncontrolled - resumed on Metoprolol and Diltiazem - will up- titrate as required. 8. AAA - 4cm - to be monitored as out-patient. 9. Severe Malnutrition - Dietary consult, prevention of pressure ulcers, fall prevention. DVT Px - Heparin SQ Visit type - Emergency Visit Emergency Visit: Yes ED Registration Date: 05/22/18 Care time: The patient presented to the Emergency Department on the above date and was hospitalized for further evaluation of their emergent condition. - New Patient This patient is new to me today: No - Critical Care Critical Care patient: No - Discharge Referral Referred to [facility] Med [facility] No
[2018-05-23] MEDS: SODIUM CHLORIDE 1,000 ML IV SCH (17:26)
--- NOTE | 2018-05-23 19:10 | EKG ---
Test Reason : Blood Pressure : / mmHG Vent. Rate : 078 BPM Atrial Rate : 078 BPM P-R Int : 190 ms QRS Dur : 116 ms QT Int : 446 ms P-R-T Axes : 055 -38 063 degrees QTc Int : 508 ms NORMAL SINUS RHYTHM LEFT AXIS DEVIATION LOW VOLTAGE QRS NONSPECIFIC ST ABNORMALITY ABNORMAL ECG NO PREVIOUS ECGS AVAILABLE Confirmed by STEVEN MOORE MD ([id number]) on 05/23/2018 7:10:00 PM Referred By: Confirmed By:STEVEN MOORE MD
[2018-05-23] MEDS: LIDOCAINE PATCH REMOVAL MC SCH (22:30)
[2018-05-24] MEDS: HEPARIN NA (PORCINE) 5,000 UNITS/ML 1ML VIAL SQ SCH ×3 (06:35→22:42)
[2018-05-24] MEDS: BETHANECHOL CHLORIDE 25 MG TABLET PO SCH ×3 (06:35→22:42)
[2018-05-24] MEDS: INSULIN SLIDING SCALE (NOVOLOG) 1 VIAL SQ SCH ×4 (06:36→22:56)
[2018-05-24] MEDS: SODIUM CHLORIDE 1,000 ML IV SCH (06:36)
--- NOTE | 2018-05-24 10:25 | PN ---
Progress Note (short form) - Note Progress Note: NEUROSURGERY BP better over night Not c/o back pain PE: T 98.9, AF, 161/87 HEENT- NC/AT; Neck- supple; Cor- Irreg; Lungs- CTA; Abd- benign; Ext- no sign of DVT A/A/x1; more awake [id number]; Motor- 4+-5 Bb UE/LE; Sensation- intact LT; decreased distal vibratory sensation; DTR- 3+ UE, 2+ patellar, 1+ B ankles; LS spine CT- chronic marked L1 compression fx with mild sup > inf endplate retropulsion and mild-moderate stenosis; mild L4 and L5 compression deformity; no associated paravertebral soft tissue edema to suggest acute fx; DDD with moderate stenosis L4-5 > L5-S1 Chronic osteoporotic lumbar fractures L 1 > L4/L5 with superimposed trauma; pt denies significant pain presently Medical management only Safety/fall precautions If persistent/worsening axial LBP could consider vertebroplasty, though not at this time BP control per medical team
[2018-05-24] MEDS ORDERED: PT OWN MED DRAWER 7, Y5N ONE ×3 (11:05→22:47)
[2018-05-24] MEDS: LIDOCAINE 5% TOPICAL PATCH TP SCH (11:08)
[2018-05-24] MEDS: METOPROLOL TARTRATE 50 MG TABLET (FP) PO SCH ×2 (11:09→22:42)
[2018-05-24] MEDS: TAMSULOSIN HCL 0.4 MG CAP PO SCH (11:09)
[2018-05-24] MEDS: MYCOPHENOLATE MOFETIL 250 MG CAPSULE PO SCH ×2 (11:10→22:43)
[2018-05-24] MEDS: TACROLIMUS 0.5 MG CAPSULE PO SCH ×2 (11:10→22:48)
--- NOTE | 2018-05-24 11:45 | PN ---
Physical Exam: SUBJECTIVE: Patient seen and examined at bedside this morning. Patient does not endorse any acute complaints today. OBJECTIVE: Vital Signs Period Temp Pulse Resp BP Sys/Tripp Pulse Ox Last 24 Hr 98.2 F-99.2 F 56-64 20-24 144-175/80-106 97 GENERAL: The patient is awake, alert, oriented to self, in no acute distress. HEAD: Normocephalic, atraumatic EYES: PERRL, extraocular movements intact, sclera anicteric. ENT: Oropharynx clear without exudates, moist mucous membranes. NECK: Supple without lymphadenopathy LUNGS: Breath sounds equal, clear to auscultation bilaterally, no wheezes, no crackles. HEART: Regular rate and rhythm, S1, S2 auscultated with holosystolic murmur loudest at left upper sternal border. ABDOMEN: Soft, nontender, nondistended. Normoactive bowel sounds, no guarding, no rebound tenderness. EXTREMITIES: 2+ radial and dorsalis pedis pulses b/l. No edema bilateral lower extremities NEUROLOGICAL: Cranial nerves II through XII grossly intact. No gross focal neurological deficits. SKIN: Warm, dry. Laboratory Results - last 24 hr 05/23/18 05/23/18 05/23/18 06:00 12:09 17:35 POC Glucometer 97 146 RPR Titer Nonreactive 05/23/18 05/24/18 20:57 06:17 POC Glucometer 117 92 RPR Titer Active Medications Generic Name Dose Route Start Last Admin Trade Name Freq PRN Reason Stop Dose Admin Acetaminophen 650 mg 05/22/18 13:42 05/22/18 23:13 Tylenol - PO 650 mg Q6H PRN Administration PAIN 1-3 Bethanechol Chloride 25 mg 05/22/18 22:00 05/24/18 06:35 Urecholine - PO 25 mg TID NED Administration Diltiazem HCl 180 mg 05/23/18 10:00 05/24/18 11:08 Cardizem Cd - PO 180 mg DAILY NED Administration Heparin Sodium (Porcine) 5,000 unit 05/22/18 14:00 05/24/18 06:35 Heparin - SQ 5,000 unit TID NED Administration Sodium Chloride 1,000 mls @ 75 mls/hr 05/23/18 15:45 05/24/18 06:36 Normal Saline - IV 75 mls/hr ASDIR NED Administration Insulin Aspart 1 vial 05/22/18 16:30 05/24/18 06:36 Novolog Vial Sliding Scale - SQ Not Given ACHS [facility] Protocol Lidocaine 1 patch 05/22/18 16:30 05/24/18 11:08 Lidoderm Patch - TP 1 patch DAILY NED Administration Metoprolol Tartrate 50 mg 05/22/18 22:00 05/24/18 11:09 Lopressor - PO 50 mg BID NED Administration Miscellaneous 1 each 05/22/18 22:00 05/23/18 22:30 Lidoderm Patch Removal MC 1 each DAILY@2200 NED Administration Mycophenolate Mofetil 250 mg 05/22/18 22:00 05/24/18 11:10 Cellcept - PO 250 mg BID NED Administration Tacrolimus 0.5 mg 05/22/18 22:00 05/24/18 11:10 Prograf PO 0.5 mg BID NED Administration Tamsulosin HCl 0.4 mg 05/23/18 08:30 05/24/18 11:09 Flomax - PO 0.4 mg DAILY@0830 NED Administration ASSESSMENT/PLAN: Patient is a 78 year old female with history of Afib (not on anticoagulation), dementia, hypertension, diabetes mellitus, renal transplant (on Tacrolimus and Mycophenolate), presents after fall. Encephalopathy -Uncertain of patient's baseline. Unable to contact family to obtain further history. -CT head shows no acute pathology. -Urine culture negative for growth -TSH 5.08. Follow free T4 -RPR negative -Fall precautions FALL -CT head negative for acute pathology -CT cervical spine shows mild degenerative arthritis without fracture -Lumbar spine radiograph shows major compression of L1 and partial compression L4 and L5. -CT lumbar spine shows compressin fractures L1, L4, L5 vertebral bodies, likely chronic -Pelvic radiograph shows right superior and inferior pubic rami fracture, possible left inferior pubic ramus fracture. -Cardiac ECHO shows LV normal in size, and systolic function. EF 60- 65%. Grade II diastolic dysfunction noted. Severe aortic valve thickening. No pericardial effusion. -Orthopedic surgery consult (Dr. Boggs) appreciated. No acute surgical intervention at this time -Neurosurgery consult (Dr. Young) appreciated. No acute neurosurgical intervention at this time. -Pain control with Acetaminopen 650mg PO Q6H PRN Diabetes mellitus, non insulin dependent -Holding home medications -Insulin sliding scale ACHS -Fingerstick blood glucose monitoring ACHS Afib -Not on anticoagulation -Metoprolol 50mg PO BID -Diltiazem 180mg PO daily Renal transplant -Continue Mycophenolate 250mg PO BID -Tacrolimus 0.5mg PO BID Urinary retention -Tamsulosin 0.4mg PO daily -Bethanechol 25mg PO TID Malnutrition -emt i/99 consult appreciated. -Pro source QD -Glucerna BID to support poor PO intake. Prophylaxis -Heparin 5000u subq TID FEN -No IV fluids. Encourage judicious oral hydration. -Follow CMP -Soft diet. Will add Pro source QD, Glucerna BID with building operator recommendation. Disposition -Continue care in medical-surgical floor. Attempting to contact family to obtain further patient history. Visit type - Emergency Visit Emergency Visit: Yes ED Registration Date: 05/22/18 Care time: The patient presented to the Emergency Department on the above date and was hospitalized for further evaluation of their emergent condition. - New Patient This patient is new to me today: Yes Date on this admission: 05/24/18 - Critical Care Critical Care patient: No - Discharge Referral Referred to [facility] Med [facility].C.: No
--- NOTE | 2018-05-24 11:57 | PN ---
Teaching Attending Note Name of Resident: Branden Beck ATTENDING PHYSICIAN STATEMENT I saw and evaluated the patient. I reviewed the resident's note and discussed the case with the resident. I agree with the resident's findings and plan as documented. SUBJECTIVE: Disoriented. No complaints. Denies chest pain/palpitations/ lightheadedness/HI. OBJECTIVE: Afebrile, Hemodynamically Stable Last Vital Signs Temp Pulse Resp BP Pulse Ox 98.2 F 56 L 20 161/87 97 05/24/18 06:00 05/24/18 06:00 05/24/18 06:00 05/24/18 06:00 05/23/18 21:00 General - Cachexia HEENT - Atraumatic, Normocephalic. Temporal wasting. Heart - S1, S2, SM Lungs - clear to lungs. No crackles/wheeze. Abdomen - soft, non-tender. Bowel Sounds normal. Extremities - no edema, no calf tenderness. Neuro - AAO x 1. Tone/Power normal all 4 extremities. MS - no spinal tenderness Laboratory Results - last 24 hr 05/23/18 05/23/18 05/23/18 12:09 17:35 20:57 POC Glucometer 97 146 117 05/24/18 06:17 POC Glucometer 92 Current Medications Generic Name Dose Route Start Last Admin Trade Name Fabiola PRN Reason Stop Dose Admin Acetaminophen 650 mg 05/22/18 13:42 05/22/18 23:13 Tylenol - PO 650 mg Q6H PRN Administration PAIN 1-3 Bethanechol Chloride 25 mg 05/22/18 22:00 05/24/18 06:35 Urecholine - PO 25 mg TID NED Administration Diltiazem HCl 180 mg 05/23/18 10:00 05/24/18 11:08 Cardizem Cd - PO 180 mg DAILY NED Administration Heparin Sodium (Porcine) 5,000 unit 05/22/18 14:00 05/24/18 06:35 Heparin - SQ 5,000 unit TID NED Administration Sodium Chloride 1,000 mls @ 75 mls/hr 05/23/18 15:45 05/24/18 06:36 Normal Saline - IV 75 mls/hr ASDIR NED Administration Insulin Aspart 1 vial 05/22/18 16:30 05/24/18 06:36 Novolog Vial Sliding Scale - SQ Not Given ACHS NED Protocol Lidocaine 1 patch 05/22/18 16:30 05/24/18 11:08 Lidoderm Patch - TP 1 patch DAILY NED Administration Metoprolol Tartrate 50 mg 05/22/18 22:00 05/24/18 11:09 Lopressor - PO 50 mg BID NED Administration Miscellaneous 1 each 05/22/18 22:00 05/23/18 22:30 Lidoderm Patch Removal MC 1 each DAILY@2200 NED Administration Mycophenolate Mofetil 250 mg 05/22/18 22:00 05/24/18 11:10 Cellcept - PO 250 mg BID NED Administration Tacrolimus 0.5 mg 05/22/18 22:00 05/24/18 11:10 Prograf PO 0.5 mg BID NED Administration Tamsulosin HCl 0.4 mg 05/23/18 08:30 05/24/18 11:09 Flomax - PO 0.4 mg DAILY@0830 NED Administration ASSESSMENT AND PLAN: 78 year old female poor historian with no family at bedside with reported history of Atrial Fibrillation (not on AC), history of Renal Transplant on Tacrolimus and Mycophenolate, DM2, presents with fall (unclear timing), dysuria , and urinary frequency. No fever/chills/nausea/vomiting/diarrhea. 1. Ambulatory Dysfunction/Fall - No collateral history from family member as no one has visited to date (attempted to reach son without success) XRay Pelvis/Hip - R superior and inferior rami fractures, L inferior pubic rami fracture CT Head - no acute intracranial findings. Moderate periventricular small vessel disease CXR - calcified tortuous aorta, large heart CT C Spine - Mild DJD, No fracture. LS XRay - compression fractures L1 (chronic with endplate retropulsion and mod stenosis)/L4/L5, DDD with moderate stenosis L4/5, L5/S1 CT L/S Spine - Multiple compression fractures, likely chronic. Ortho eval - possible acute component on old pubic rami fractures - rec WBAT with assistance, pain management, PT eval. 2. Compression Fractures L1/L4/L5 Unclear acuity, likely chronic as per CT read. Neurosurgery evaluated - not for acute intervention. No back pain or neurological deficit - no indication currently for vertebroplasty. 3. Encephalopathy ?Acuity No family available to give collateral history CT Brain - no acute findings. WB12 - 460 TSH 5.08, free T4 requested RPR non-reactive. Urine Cx negative. 3. DM 2 - hold Sitagliptin, maintain on sliding scale. 4. Vague/Unclear Hx Atrial Fibrillation - Continue Metoprolol and Diltiazem. Not on AC. 5. History of Urinary Retention - Continue Tamsulosin, Bethanecol. 6. Cardiomegaly/Pericardial Effusion on CT - Echo requested. 7. HTN - appears age-appropriately uncontrolled - resumed on Metoprolol and Diltiazem - will up-titrate as required. 8. AAA - 4cm - to be monitored as out-patient. 9. Severe Malnutrition - Dietary consult, prevention of pressure ulcers, fall prevention. DVT Px - Heparin SQ Dispo - will need SNF on DC. SW to help with finding family.
--- NOTE | 2018-05-24 12:55 | PN ---
Progress Note (short form) - Note Progress Note: ORTHOPEDIC SURGERY PROGRESS NOTE Department of Orthopedic Surgery SUBJECTIVE No complaints currently. Sightly confused. Denies chest pain, shortness of breath, or calf pain. No nausea or vomiting. Tolerating oral intake. PHYSICAL EXAMINATION General: Alert and able to follow commands. Not in acute distress. Lower Extremity: Left hip posterolateral incisional scar with no erythema or signs of infection. Muscle mass equal and symmetric to contralateral side. No masses or effusions noted. No tenderness to palpation. Full passive and active ROM, free from pain. Patient able to move ankle and toes. SILT distally; 2+ DP pulses; Cap refill brisk. DVT Exam: No evidence of DVT seen on physical exam; No cords or calf tenderness ; No significant calf/ankle edema. Intake & Output 05/22/18 05/23/18 05/24/18 23:59 23:59 23:59 Intake Total 200 1050 825 Balance 200 1050 825 Intake: IV 825 Normal Saline - 1,000 ml 825 @ 75 mls/hr IV ASDIR [facility] Rx#:[id number] Oral 200 1050 Other: Voiding Method Diaper Incontinent Incontinent # Unmeasured Voids Void 0 1 1 Bowel Movement No No Weight 140 lb 140 lb Height 5 ft 5 in 5 ft 5 in Body Mass Index (BMI) 23.3 23.3 Weight Measurement Method Est/Stated by Patient Active Medications Generic Name Dose Route Start Last Admin Trade Name Freq PRN Reason Stop Dose Admin Acetaminophen 650 mg 05/22/18 13:42 05/22/18 23:13 Tylenol - PO 650 mg Q6H PRN Administration PAIN 1-3 Bethanechol Chloride 25 mg 05/22/18 22:00 05/24/18 06:35 Urecholine - PO 25 mg TID [facility] Administration Diltiazem HCl 180 mg 05/23/18 10:00 05/24/18 11:08 Cardizem Cd - PO 180 mg DAILY [facility] Administration Heparin Sodium (Porcine) 5,000 unit 05/22/18 14:00 05/24/18 06:35 Heparin - SQ 5,000 unit TID [facility] Administration Insulin Aspart 1 vial 05/22/18 16:30 05/24/18 12:19 Novolog Vial Sliding Scale - SQ Not Given ACHS [facility] Protocol Lidocaine 1 patch 05/22/18 16:30 05/24/18 11:08 Lidoderm Patch - TP 1 patch DAILY NED Administration Metoprolol Tartrate 50 mg 05/22/18 22:00 05/24/18 11:09 Lopressor - PO 50 mg BID NED Administration Miscellaneous 1 each 05/22/18 22:00 05/23/18 22:30 Lidoderm Patch Removal MC 1 each DAILY@2200 NED Administration Mycophenolate Mofetil 250 mg 05/22/18 22:00 05/24/18 11:10 Cellcept - PO 250 mg BID NED Administration Tacrolimus 0.5 mg 05/22/18 22:00 05/24/18 11:10 Prograf PO 0.5 mg BID NED Administration Tamsulosin HCl 0.4 mg 05/23/18 08:30 05/24/18 11:09 Flomax - PO 0.4 mg DAILY@0830 NED Administration Vital Signs (last) Temp Pulse Resp BP Pulse Ox 98.2 F 56 L 20 161/87 97 05/24/18 06:00 05/24/18 06:00 05/24/18 06:00 05/24/18 06:00 05/23/18 21:00 Laboratory (coagulation) PT with INR 13.20 SEC (9.7-13.0) H 05/22/18 07:47 Laboratory 05/23/18 05:50 05/23/18 05:50 IMAGING Pelvis radiographs and CT scan reveal subacute vs chronic right sided pubic rami fractures. ASSESSMENT AND PLAN Roslyn Strickland is a 78 year old female with (1) subacute vs chronic right-sided pubic ramus fractures and (2) lumbar spondylosis with multiple vertebral compression fractures - Neurosurgery consult appreciated - No orthopedic intervention at this time - Pain control: minimize narcotic use - Monitor vitals - DVT prophylaxis - Elevate HOB, encourage oral intake - Appreciate medical management (Nutrition optimization, decubitus precautions heel/sacrum) - PT/OT; WBAT with assistance Thank you for involving us in the care of your patient. She can follow up as outpatient in our office. Please call [phone] with any questions.
--- NOTE | 2018-05-24 14:15 | ECHO ---
Name: LINCOLN FRASER Exam:Adult Echocardiogram Study Date: 05/24/2018 12:38 PM Age: 78 yrs Reason For Study: CARDIOMEGALY PERICARDIAL EFFUSION Height: 65 in Weight: 140 lb BSA: 1.7 m2 MMode/2D Measurements & Calculations IVSd: 1.3 cm Ao root diam: 3.2 cm LVIDd: 4.6 cm LA dimension: 3.4 cm LVIDs: 3.4 cm LVPWd: 1.1 cm EDV(Teich): 98.0 ml LVOT diam: 2.0 cm ESV(Teich): 47.1 ml Doppler Measurements & Calculations MV E max grupo: 48.5 cm/sec Ao V2 max: 280.3 cm/sec MV A max grupo: 73.6 cm/sec Ao max P.0 mmHg MV E/A: 0.66 Ao V2 mean: 215.8 cm/sec MV dec time: 0.32 sec Ao mean P.0 mmHg Ao V2 VTI: 66.3 cm LYNNE(I,D): 0.95 cm2 AI P1/2t: 508.7 msec LYNNE(V,D): 1.0 cm2 AI max grupo: 215.9 cm/sec LV V1 max P.1 mmHg AI max P.5 mmHg LV V1 mean P.9 mmHg AI dec slope: 124.3 cm/sec2 LV V1 max: 88.2 cm/sec LV V1 mean: 62.6 cm/sec LV V1 VTI: 19.5 cm MR max grupo: 407.6 cm/sec SV(LVOT): 62.8 ml MR max P.5 mmHg TR max grupo: 235.7 cm/sec PI end-d grupo: 164.5 cm/sec TR max P.3 mmHg Med Peak E' Grupo: 2.4 cm/sec Med E/e': 19.9 Lat Peak E' Grupo: 3.1 cm/sec Lat E/e': 15.5 Procedure A complete two-dimensional transthoracic echocardiogram was performed (2D, M-mode, Doppler and color flow Doppler). Left Ventricle The left ventricle is normal in size. Left ventricular systolic function is normal. Ejection Fraction = 60- 65%. Diastolic dysfunction, Grade II, consistent with elevated left atrial pressure. Ratio E/E'= 19. No regional wall motion abnormalities noted. Right Ventricle The right ventricle is normal size. The right ventricular systolic function is normal. RV systolic TD I is 11 cm/s. Atria The left atrial size is normal. Right atrial size is normal. Mitral Valve There is mild mitral annular calcification. There is mild mitral regurgitation. Tricuspid Valve The tricuspid valve is normal in structure and function. No tricuspid regurgitation. Aortic Valve There is severe aortic valve thickening. Severe valvular aortic stenosis. The calculated aortic valve area using the continuity equation is 0.7 cm2. Aortic mean pressure gradient= 31 mmHg. DI (dimensionless i ndex) is 0.22. Mild aortic regurgitation. Pulmonic Valve The pulmonic valve is not well visualized. Mild pulmonic valvular regurgitation. Great Vessels The aortic root is normal size. Pericardium/Pleura There is no pericardial effusion. Interpretation Summary The left ventricle is normal in size. Left ventricular systolic function is normal. No regional wall motion abnormalities noted. Ejection Fraction = 60-65%. Diastolic dysfunction, Grade II, consistent with elevated left atrial pressure. Ratio E/E'= 19 The right ventricular systolic function is normal. The left atrial size is normal. Right atrial size is normal. There is mild mitral annular calcification. There is mild mitral regurgitation. There is severe aortic valve thickening. Severe valvular aortic stenosis. The calculated aortic valve area using the continuity equation is 0.7 cm2. Aortic mean pressure gradient= 31 mmHg DI (dimensionless index) is 0.22 Mild aortic regurgitation. Mild pulmonic valvular regurgitation. There is no pericardial effusion. Previous study is not available for comparison Danny Quesada MD 05/24/2018 02:14 PM
[2018-05-24 16:10] LABS: ANION GAP 6 MMOL/L (8-16); BLOOD UREA NITROGEN 11 mg/dL (7-18); CALCIUM 8.3 mg/dL (8.5-10.1); CHLORIDE 111 mmol/L (98-107); CO2 25 mmol/L (21-32); CREATININE 0.6 mg/dL (0.55-1.3); GLUCOSE,RANDOM 123 mg/dL (74-106); POTASSIUM 3.8 mmol/L (3.5-5.1); SODIUM 142 mmol/L (136-145)
[2018-05-24] MEDS: LIDOCAINE PATCH REMOVAL MC SCH (22:44)
[2018-05-25] MEDS: LEVOTHYROXINE NA 112 MCG TABLET (FP) PO SCH (06:41)
[2018-05-25] MEDS: BETHANECHOL CHLORIDE 25 MG TABLET PO SCH ×3 (06:41→21:50)
[2018-05-25] MEDS: HEPARIN NA (PORCINE) 5,000 UNITS/ML 1ML VIAL SQ SCH ×3 (06:42→21:52)
[2018-05-25] MEDS: INSULIN SLIDING SCALE (NOVOLOG) 1 VIAL SQ SCH ×4 (06:56→21:55)
[2018-05-25 08:15] LABS: HEMATOCRIT 40.5 % (32.4-45.2); HEMOGLOBIN 13.7 GM/dL (10.7-15.3); MCH 28.8 pg (25.7-33.7); MCHC 33.7 g/dl (32.0-36.0); MEAN CELL VOLUME 85.3 fl (80-96); MEAN PLT VOLUME 8.6 fl (7.5-11.1); PLATELET COUNT 259 K/MM3 (134-434); RBC 4.75 M/mm3 (3.60-5.2); RDW 14.9 % (11.6-15.6); WHITE BLOOD COUNT 6.9 K/mm3 (4.0-10.0)
--- NOTE | 2018-05-25 08:15 | PN ---
Progress Note (short form) - Note Progress Note: NEUROSURGERY BP better Denies back pain PE: AF, VSS HEENT- NC/AT; Neck- supple; Cor- Irreg; Lungs- CTA; Abd- benign; Ext- no sign of DVT A/A/x1; more awake [id number]; Motor- 4+-5 Bb UE/LE; Sensation- intact LT; DTR- 3+ UE, 2+ patellar, 1+ B ankles LS spine CT- chronic marked L1 compression fx with mild sup > inf endplate retropulsion and mild-moderate stenosis; mild L4 and L5 compression deformity; no associated paravertebral soft tissue edema to suggest acute fx; DDD with moderate stenosis L4-5 > L5-S1 Chronic osteoporotic lumbar fractures L 1 > L4/L5 with superimposed recent trauma Medical management only Safety/fall precautions Tx for osteoporosis per medical team Will sign off, reconsult prn
[2018-05-25 08:31] LABS: ANION GAP 7 MMOL/L (8-16); BLOOD UREA NITROGEN 10 mg/dL (7-18); CALCIUM 8.6 mg/dL (8.5-10.1); CHLORIDE 109 mmol/L (98-107); CO2 27 mmol/L (21-32); CREATININE 0.5 mg/dL (0.55-1.3); GLUCOSE,RANDOM 102 mg/dL (74-106); POTASSIUM 4.2 mmol/L (3.5-5.1); SODIUM 143 mmol/L (136-145)
[2018-05-25] MEDS ORDERED: PT OWN MED DRAWER 7, Y5N ONE (09:43)
[2018-05-25] MEDS: LIDOCAINE 5% TOPICAL PATCH TP SCH (09:43)
[2018-05-25] MEDS: METOPROLOL TARTRATE 50 MG TABLET (FP) PO SCH ×2 (09:44→21:50)
[2018-05-25] MEDS: TAMSULOSIN HCL 0.4 MG CAP PO SCH (09:44)
[2018-05-25] MEDS: MYCOPHENOLATE MOFETIL 250 MG CAPSULE PO SCH ×2 (09:47→21:52)
[2018-05-25] MEDS: TACROLIMUS 0.5 MG CAPSULE PO SCH ×2 (09:47→21:52)
--- NOTE | 2018-05-25 15:40 | PN ---
Teaching Attending Note Name of Resident: Branden Beck ATTENDING PHYSICIAN STATEMENT I saw and evaluated the patient. I reviewed the resident's note and discussed the case with the resident. I agree with the resident's findings and plan as documented. SUBJECTIVE: Patient is confused. She looks comfortable and offers no complaints. OBJECTIVE: Vital Signs Period Temp Pulse Resp BP Sys/Tripp Pulse Ox Last 24 Hr 97.0 F-97.8 F 60-69 18-22 105-176/58-104 99 HEART: S1S2, RRR, (+) 3/6 SM LUNGS: Clear ABDOMEN: Soft, non-tender, non-distended, normal BS EXTREMITIES: No edema Laboratory Results - last 24 hr 05/24/18 05/24/18 05/24/18 14:40 17:12 22:55 WBC RBC Hgb Hct MCV MCH MCHC RDW Plt Count MPV Sodium 142 Potassium 3.8 Chloride 111 H Carbon Dioxide 25 Anion Gap 6 L BUN 11 Creatinine 0.6 Creat Clearance w eGFR > 60 POC Glucometer 118 103 Random Glucose 123 H Calcium 8.3 L Free T4 1.24 05/25/18 05/25/18 05/25/18 06:45 06:45 06:45 WBC 6.9 RBC 4.75 Hgb 13.7 Hct 40.5 MCV 85.3 MCH 28.8 MCHC 33.7 RDW 14.9 Plt Count 259 MPV 8.6 Sodium 143 Potassium 4.2 Chloride 109 H Carbon Dioxide 27 Anion Gap 7 L BUN 10 Creatinine 0.5 L Creat Clearance w eGFR > 60 POC Glucometer 117 Random Glucose 102 Calcium 8.6 Free T4 05/25/18 11:34 WBC RBC Hgb Hct MCV MCH MCHC RDW Plt Count MPV Sodium Potassium Chloride Carbon Dioxide Anion Gap BUN Creatinine Creat Clearance w eGFR POC Glucometer 102 Random Glucose Calcium Free T4 Current Medications Generic Name Dose Route Start Last Admin Trade Name Freq PRN Reason Stop Dose Admin Acetaminophen 650 mg 05/22/18 13:42 05/22/18 23:13 Tylenol - PO 650 mg Q6H PRN Administration PAIN 1-3 Bethanechol Chloride 25 mg 05/22/18 22:00 05/25/18 14:46 Urecholine - PO 25 mg TID NED Administration Diltiazem HCl 180 mg 05/23/18 10:00 05/25/18 09:44 Cardizem Cd - PO 180 mg DAILY NED Administration Heparin Sodium (Porcine) 5,000 unit 05/22/18 14:00 05/25/18 14:46 Heparin - SQ 5,000 unit TID NED Administration Insulin Aspart 1 vial 05/22/18 16:30 05/25/18 11:37 Novolog Vial Sliding Scale - SQ Not Given ACHS [facility] Protocol Levothyroxine Sodium 112 mcg 05/25/18 07:00 05/25/18 06:41 Synthroid - PO 112 mcg DAILY@0700 NED Administration Lidocaine 1 patch 05/22/18 16:30 05/25/18 09:43 Lidoderm Patch - TP 1 patch DAILY NED Administration Metoprolol Tartrate 50 mg 05/22/18 22:00 05/25/18 09:44 Lopressor - PO 50 mg BID NED Administration Miscellaneous 1 each 05/22/18 22:00 05/24/18 22:44 Lidoderm Patch Removal MC 1 each DAILY@2200 NED Administration Mycophenolate Mofetil 250 mg 05/22/18 22:00 05/25/18 09:47 Cellcept - PO 250 mg BID NED Administration Tacrolimus 0.5 mg 05/22/18 22:00 05/25/18 09:47 Prograf PO 0.5 mg BID NED Administration Tamsulosin HCl 0.4 mg 05/23/18 08:30 05/25/18 09:44 Flomax - PO 0.4 mg DAILY@0830 NED Administration ASSESSMENT AND PLAN: This is a 78 year old woman with a history of atrial fibrillation, kidney transplant, type 2 DM who presented to the ED because of a fall, dysuria, and urinary frequency. 1. s/p fall with bilateral pubic rami fractures, acute and chronic - Physical therapy - Pain control - Will need subacute rehab at discharge 2. Multiple lumbar compression fractures, likely chronic - No intervention indicated 3. Possible acute metabolic encephalopathy, possible dementia - No evidence of infection - RPR negative, B12 normal, TSH high with normal FT4 4. Type 2 DM - Januvia held - Continue Novolog sliding scale 5. History of atrial fibrillation - Continue Lopressor, Cardizem CD - Not on anticoagulation - would not start secondary to risk of falling 6. History of urinary retention - Continue Flomax, Urecholine 7. No evidence of pericardial effusion - Echo shows normal LV, LVEF 60-65%, grade II diastolic dysfunction, normal RV, normal LA, normal RA, mild MR, severe , mild AI, mild PI, no effusion 8. Severe aortic stenosis 9. Hypothyroidism - Continue Synthroid 10. HTN - Continue Lopressor, Cardizem CD 11. AAA - [address] - Outpatient follow up 12. History of renal transplant - Continue Prograf, CellCept 13. Severe malnutrition - Continue Glucerna, ProSource
--- NOTE | 2018-05-25 15:55 | PN ---
Physical Exam: SUBJECTIVE: Patient seen and examined at bedside. She denies acute complaints this morning. Case was discussed with patient' son Jose who states he is power of patent attorney. He is in agreement with plan of rehab after hospital discharge. OBJECTIVE: Vital Signs Period Temp Pulse Resp BP Sys/Tripp Pulse Ox Last 24 Hr 97.0 F-97.8 F 60-69 18-22 105-176/58-104 99 GENERAL: The patient is awake, alert, oriented to self, in no acute distress. HEAD: Normocephalic, atraumatic EYES: PERRL, extraocular movements intact, sclera anicteric. ENT: Oropharynx clear without exudates, moist mucous membranes. NECK: Supple without lymphadenopathy LUNGS: Breath sounds equal, clear to auscultation bilaterally, no wheezes, no crackles. HEART: Regular rate and rhythm, S1, S2 auscultated with holosystolic murmur loudest at left upper sternal border. ABDOMEN: Soft, nontender, nondistended. Normoactive bowel sounds, no guarding, no rebound tenderness. EXTREMITIES: 2+ radial and dorsalis pedis pulses b/l. No edema bilateral lower extremities NEUROLOGICAL: Cranial nerves II through XII grossly intact. No gross focal neurological deficits. SKIN: Warm, dry. Laboratory Results - last 24 hr 05/24/18 05/24/18 05/24/18 14:40 17:12 22:55 WBC RBC Hgb Hct MCV MCH MCHC RDW Plt Count MPV Sodium 142 Potassium 3.8 Chloride 111 H Carbon Dioxide 25 Anion Gap 6 L BUN 11 Creatinine 0.6 Creat Clearance w eGFR > 60 POC Glucometer 118 103 Random Glucose 123 H Calcium 8.3 L Free T4 1.24 05/25/18 05/25/18 05/25/18 06:45 06:45 06:45 WBC 6.9 RBC 4.75 Hgb 13.7 Hct 40.5 MCV 85.3 MCH 28.8 MCHC 33.7 RDW 14.9 Plt Count 259 MPV 8.6 Sodium 143 Potassium 4.2 Chloride 109 H Carbon Dioxide 27 Anion Gap 7 L BUN 10 Creatinine 0.5 L Creat Clearance w eGFR > 60 POC Glucometer 117 Random Glucose 102 Calcium 8.6 Free T4 05/25/18 11:34 WBC RBC Hgb Hct MCV MCH MCHC RDW Plt Count MPV Sodium Potassium Chloride Carbon Dioxide Anion Gap BUN Creatinine Creat Clearance w eGFR POC Glucometer 102 Random Glucose Calcium Free T4 Active Medications Generic Name Dose Route Start Last Admin Trade Name Fabiola PRN Reason Stop Dose Admin Acetaminophen 650 mg 05/22/18 13:42 05/22/18 23:13 Tylenol - PO 650 mg Q6H PRN Administration PAIN 1-3 Bethanechol Chloride 25 mg 05/22/18 22:00 05/25/18 14:46 Urecholine - PO 25 mg TID NED Administration Diltiazem HCl 180 mg 05/23/18 10:00 05/25/18 09:44 Cardizem Cd - PO 180 mg DAILY NED Administration Heparin Sodium (Porcine) 5,000 unit 05/22/18 14:00 05/25/18 14:46 Heparin - SQ 5,000 unit TID NED Administration Insulin Aspart 1 vial 05/22/18 16:30 05/25/18 11:37 Novolog Vial Sliding Scale - SQ Not Given ACHS [facility] Protocol Levothyroxine Sodium 112 mcg 05/25/18 07:00 05/25/18 06:41 Synthroid - PO 112 mcg DAILY@0700 NED Administration Lidocaine 1 patch 05/22/18 16:30 05/25/18 09:43 Lidoderm Patch - TP 1 patch DAILY NED Administration Metoprolol Tartrate 50 mg 05/22/18 22:00 05/25/18 09:44 Lopressor - PO 50 mg BID NED Administration Miscellaneous 1 each 05/22/18 22:00 05/24/18 22:44 Lidoderm Patch Removal MC 1 each DAILY@2200 NED Administration Mycophenolate Mofetil 250 mg 05/22/18 22:00 05/25/18 09:47 Cellcept - PO 250 mg BID NED Administration Tacrolimus 0.5 mg 05/22/18 22:00 05/25/18 09:47 Prograf PO 0.5 mg BID NED Administration Tamsulosin HCl 0.4 mg 05/23/18 08:30 05/25/18 09:44 Flomax - PO 0.4 mg DAILY@0830 NED Administration ASSESSMENT/PLAN: Patient is a 78 year old female with history of Afib (not on anticoagulation), dementia, hypertension, diabetes mellitus, renal transplant (on Tacrolimus and Mycophenolate), presents after fall. Encephalopathy -Patient's son states that patient is conservative at baseline, however endorses recent decline in patient's awareness and mental status. -CT head shows no acute pathology. -Urine culture negative for growth -TSH 5.08. Free T4 1.24 -RPR negative -Fall precautions Mechanical fall -CT head negative for acute pathology -CT cervical spine shows mild degenerative arthritis without fracture -Lumbar spine radiograph shows major compression of L1 and partial compression L4 and L5. -CT lumbar spine shows compressin fractures L1, L4, L5 vertebral bodies, likely chronic -Pelvic radiograph shows right superior and inferior pubic rami fracture, possible left inferior pubic ramus fracture. -Cardiac ECHO shows LV normal in size, and systolic function. EF 60- 65%. Grade II diastolic dysfunction noted. Severe aortic valve thickening. No pericardial effusion. -Orthopedic surgery consult (Dr. Boggs) appreciated. No acute surgical intervention at this time -Neurosurgery consult (Dr. Young) appreciated. No acute neurosurgical intervention at this time. -Pain control with Acetaminopen 650mg PO Q6H PRN Diabetes mellitus, non insulin dependent -Holding home medications -Insulin sliding scale ACHS -Fingerstick blood glucose monitoring ACHS Hypothyroidism -Levothyroxine 112mcg PO daily Afib -Not on anticoagulation -Metoprolol 50mg PO BID -Diltiazem 180mg PO daily Renal transplant -Continue Mycophenolate 250mg PO BID -Tacrolimus 0.5mg PO BID Urinary retention -Tamsulosin 0.4mg PO daily -Bethanechol 25mg PO TID Malnutrition -district captain consult appreciated. -Pro source QD -Glucerna BID to support poor PO intake. Prophylaxis -Heparin 5000u subq TID FEN -No IV fluids. Encourage judicious oral hydration. -Follow CMP -Soft diet. Add Pro source QD, Glucerna BID with tool adjuster recommendation. Disposition -Continue care in medical-surgical floor. Patient is pending placement for rehab. Visit type - Emergency Visit Emergency Visit: Yes ED Registration Date: 05/22/18 Care time: The patient presented to the Emergency Department on the above date and was hospitalized for further evaluation of their emergent condition. - New Patient This patient is new to me today: No - Critical Care Critical Care patient: No - Discharge Referral Referred to [facility] Med P.C.: No
[2018-05-25] MEDS ORDERED: INSULIN (NOVOLOG) ASPART 100 UNITS/ML 10ML VIAL ONE (18:21)
[2018-05-25] MEDS: LIDOCAINE PATCH REMOVAL MC SCH (21:52)
[2018-05-26] MEDS: HEPARIN NA (PORCINE) 5,000 UNITS/ML 1ML VIAL SQ SCH ×3 (07:12→22:06)
[2018-05-26] MEDS: LEVOTHYROXINE NA 112 MCG TABLET (FP) PO SCH (07:13)
[2018-05-26] MEDS: BETHANECHOL CHLORIDE 25 MG TABLET PO SCH ×3 (07:13→22:07)
[2018-05-26] MEDS: INSULIN SLIDING SCALE (NOVOLOG) 1 VIAL SQ SCH ×4 (07:13→22:06)
[2018-05-26] MEDS ORDERED: PT OWN MED DRAWER 7, Y5N ONE (10:01)
[2018-05-26] MEDS: METOPROLOL TARTRATE 50 MG TABLET (FP) PO SCH ×2 (10:02→22:06)
[2018-05-26] MEDS: LIDOCAINE 5% TOPICAL PATCH TP SCH (10:02)
[2018-05-26] MEDS: MYCOPHENOLATE MOFETIL 250 MG CAPSULE PO SCH ×2 (10:02→22:05)
[2018-05-26] MEDS: TAMSULOSIN HCL 0.4 MG CAP PO SCH (10:02)
[2018-05-26] MEDS: TACROLIMUS 0.5 MG CAPSULE PO SCH ×2 (10:03→22:07)
--- NOTE | 2018-05-26 10:27 | PN ---
Progress Note (short form) - Note Progress Note: ORTHOPEDIC SURGERY PROGRESS NOTE Department of Orthopedic Surgery SUBJECTIVE No acute events overnight. Patient with no complaints currently. Pain control improving. Able to ambulate 45 feet with physical therapy. PT recommending SNF. Intake & Output 05/21/18 05/22/18 05/23/18 23:59 23:59 23:59 Intake Total 200 400 Balance 200 400 Intake: Oral 200 400 Other: Voiding Method Diaper # Unmeasured Voids Void 0 Bowel Movement No Weight 140 lb Height 5 ft 5 in Body Mass Index (BMI) 23.3 Weight Measurement Method Est/Stated by Patient Active Medications Generic Name Dose Route Start Last Admin Trade Name Freq PRN Reason Stop Dose Admin Acetaminophen 650 mg 05/22/18 13:42 05/22/18 23:13 Tylenol - PO 650 mg Q6H PRN Administration PAIN 1-3 Bethanechol Chloride 25 mg 05/22/18 22:00 05/23/18 06:31 Urecholine - PO 25 mg TID NED Administration Diltiazem HCl 180 mg 05/23/18 10:00 05/23/18 11:01 Cardizem Cd - PO 180 mg DAILY NED Administration Heparin Sodium (Porcine) 5,000 unit 05/22/18 14:00 05/23/18 06:31 Heparin - SQ 5,000 unit TID NED Administration Insulin Aspart 1 vial 05/22/18 16:30 05/23/18 06:32 Novolog Vial Sliding Scale - SQ Not Given ACHS [facility] Protocol Lidocaine 1 patch 05/22/18 16:30 05/23/18 11:03 Lidoderm Patch - TP 1 patch DAILY NED Administration Metoprolol Tartrate 50 mg 05/22/18 22:00 05/23/18 11:01 Lopressor - PO 50 mg BID NED Administration Miscellaneous 1 each 05/22/18 22:00 05/22/18 23:09 Lidoderm Patch Removal MC 1 each DAILY@2200 NED Administration Mycophenolate Mofetil 250 mg 05/22/18 22:00 05/23/18 11:02 Cellcept - PO 250 mg BID NED Administration Tacrolimus 0.5 mg 05/22/18 22:00 05/23/18 11:03 Prograf PO 0.5 mg BID NED Administration Tamsulosin HCl 0.4 mg 05/23/18 08:30 05/23/18 09:04 Flomax - PO 0.4 mg DAILY@0830 NED Administration Vital Signs (last) Temp Pulse Resp BP Pulse Ox 98.4 F 73 24 H 186/86 H 97 05/23/18 09:02 05/23/18 10:58 05/23/18 10:58 05/23/18 10:58 05/22/18 21:00 Laboratory (coagulation) PT with INR 13.20 SEC (9.7-13.0) H 05/22/18 07:47 Laboratory 05/23/18 05:50 05/23/18 05:50 PHYSICAL EXAMINATION General: Alert and able to follow commands. Not in acute distress. Lower Extremity: Left hip posterolateral incisional scar with no erythema or signs of infection. Muscle mass equal and symmetric to contralateral side. No masses or effusions noted. No tenderness to palpation. Full passive and active ROM, free from pain. Patient able to move ankle and toes. SILT distally; 2+ DP pulses; Cap refill brisk. DVT Exam: No evidence of DVT seen on physical exam; No cords or calf tenderness ; No significant calf/ankle edema. IMAGING Pelvis radiographs and CT scan reveal subacute vs chronic right sided pubic rami fractures. ASSESSMENT AND PLAN Roslyn Strickland is a 78 year old female with (1) subacute vs chronic right-sided pubic ramus fractures and (2) lumbar spondylosis with multiple vertebral compression fractures - Contininue with PT; WBAT with assistance - PT recs appreciated - Pain control: minimize narcotic use - Monitor vitals; Medical management as per primary team - DVT prophylaxis - Elevate HOB, encourage oral intake - Appreciate medical management (Nutrition optimization, decubitus precautions heel/sacrum)
[2018-05-26] MEDS ORDERED: HALOPERIDOL 1 MG TABLET (FP) PO PRN (10:58)
[2018-05-26] MEDS ORDERED: HALOPERIDOL LACTATE 2 MG/ML UNIT-DOSE CUPS PO PRN (11:40)
--- NOTE | 2018-05-26 13:27 | PN ---
Physical Exam: SUBJECTIVE: Patient seen and examined at bedside this morning. She endorses abdominal discomfort at site of [place] safety vest strap. She denies subjective fevers, chills, shortness of breath, chest pain, palpitations, nausea, vomiting. OBJECTIVE: Vital Signs Period Temp Pulse Resp BP Sys/Tripp Pulse Ox Last 24 Hr 97.0 F-98.1 F 59-72 18-22 123-165/81-98 97 GENERAL: The patient is awake, alert, oriented to self, in no acute distress. HEAD: Normocephalic, atraumatic EYES: PERRL, extraocular movements intact, sclera anicteric. ENT: Oropharynx clear without exudates, moist mucous membranes. NECK: Supple without lymphadenopathy LUNGS: Breath sounds equal, clear to auscultation bilaterally, no wheezes, no crackles. HEART: Regular rate and rhythm, S1, S2 auscultated with holosystolic murmur loudest at left upper sternal border. ABDOMEN: Soft, nontender, nondistended. Normoactive bowel sounds, no guarding, no rebound tenderness. EXTREMITIES: 2+ radial and dorsalis pedis pulses b/l. No edema bilateral lower extremities NEUROLOGICAL: Cranial nerves II through XII grossly intact. No gross focal neurological deficits. SKIN: Warm, dry. Laboratory Results - last 24 hr 05/25/18 05/25/18 05/26/18 17:54 21:54 07:01 POC Glucometer 117 111 97 05/26/18 11:51 POC Glucometer 107 Active Medications Generic Name Dose Route Start Last Admin Trade Name Freq PRN Reason Stop Dose Admin Acetaminophen 650 mg 05/22/18 13:42 05/22/18 23:13 Tylenol - PO 650 mg Q6H PRN Administration PAIN 1-3 Bethanechol Chloride 25 mg 05/22/18 22:00 05/26/18 07:13 Urecholine - PO 25 mg TID NED Administration Diltiazem HCl 180 mg 05/23/18 10:00 05/26/18 10:02 Cardizem Cd - PO 180 mg DAILY NED Administration Haloperidol 1 mg 05/26/18 11:40 Haldol Liquid - PO TID PRN AGITATION Heparin Sodium (Porcine) 5,000 unit 05/22/18 14:00 05/26/18 07:12 Heparin - SQ 5,000 unit TID NED Administration Insulin Aspart 1 vial 05/22/18 16:30 05/26/18 11:40 Novolog Vial Sliding Scale - SQ Not Given ACHS [facility] Protocol Levothyroxine Sodium 112 mcg 05/25/18 07:00 05/26/18 07:13 Synthroid - PO 112 mcg DAILY@0700 NED Administration Lidocaine 1 patch 05/22/18 16:30 05/26/18 10:02 Lidoderm Patch - TP 1 patch DAILY NED Administration Metoprolol Tartrate 50 mg 05/22/18 22:00 05/26/18 10:02 Lopressor - PO 50 mg BID NED Administration Miscellaneous 1 each 05/22/18 22:00 05/25/18 21:52 Lidoderm Patch Removal MC 1 each DAILY@2200 NED Administration Mycophenolate Mofetil 250 mg 05/22/18 22:00 05/26/18 10:02 Cellcept - PO 250 mg BID NED Administration Tacrolimus 0.5 mg 05/22/18 22:00 05/26/18 10:03 Prograf PO 0.5 mg BID NED Administration Tamsulosin HCl 0.4 mg 05/23/18 08:30 05/26/18 10:02 Flomax - PO 0.4 mg DAILY@0830 NED Administration ASSESSMENT/PLAN: Patient is a 78 year old female with history of Afib (not on anticoagulation), dementia, hypertension, diabetes mellitus, renal transplant (on Tacrolimus and Mycophenolate), presents after fall. Encephalopathy -Patient's son states that patient is conservative at baseline, however endorses recent decline in patient's awareness and mental status. -CT head shows no acute pathology. -Urine culture negative for growth -TSH 5.08. Free T4 1.24 -RPR negative -Fall precautions -[place] safety vest discontinued. Patient currently does not require her home dose of Haloperidol. Will monitor closely. Mechanical fall -CT head negative for acute pathology -CT cervical spine shows mild degenerative arthritis without fracture -Lumbar spine radiograph shows major compression of L1 and partial compression L4 and L5. -CT lumbar spine shows compressin fractures L1, L4, L5 vertebral bodies, likely chronic -Pelvic radiograph shows right superior and inferior pubic rami fracture, possible left inferior pubic ramus fracture. -Cardiac ECHO shows LV normal in size, and systolic function. EF 60- 65%. Grade II diastolic dysfunction noted. Severe aortic valve thickening. No pericardial effusion. -Orthopedic surgery consult (Dr. Boggs) appreciated. No acute surgical intervention at this time -Neurosurgery consult (Dr. Young) appreciated. No acute neurosurgical intervention at this time. -Pain control with Acetaminopen 650mg PO Q6H PRN Diabetes mellitus, non insulin dependent -Holding home medications -Insulin sliding scale ACHS -Fingerstick blood glucose monitoring ACHS Hypothyroidism -Levothyroxine 112mcg PO daily Afib -Not on anticoagulation -Metoprolol 50mg PO BID -Diltiazem 180mg PO daily Renal transplant -Mycophenolate 250mg PO BID -Tacrolimus 0.5mg PO BID Urinary retention -Tamsulosin 0.4mg PO daily -Bethanechol 25mg PO TID Malnutrition -intervention teacher consult appreciated. -Pro source QD -Glucerna BID to support poor PO intake. Prophylaxis -Heparin 5000u subq TID FEN -No IV fluids. Encourage judicious oral hydration. -Follow CMP -Soft diet. Added Pro source QD, Glucerna BID with signal and communications maintainer recommendation. Disposition -Continue care in medical-surgical floor. Patient will require rehab placement. Visit type - Emergency Visit Emergency Visit: Yes ED Registration Date: 05/22/18 Care time: The patient presented to the Emergency Department on the above date and was hospitalized for further evaluation of their emergent condition. - New Patient This patient is new to me today: No - Critical Care Critical Care patient: No - Discharge Referral Referred to [facility] Med P.C.: No
--- NOTE | 2018-05-26 13:46 | PN ---
Teaching Attending Note Name of Resident: Branden Beck ATTENDING PHYSICIAN STATEMENT I saw and evaluated the patient. I reviewed the resident's note and discussed the case with the resident. I agree with the resident's findings and plan as documented. SUBJECTIVE: Patient remains confused. She appears comfortable but says she has abdominal pain. OBJECTIVE: Vital Signs Period Temp Pulse Resp BP Sys/Tripp Pulse Ox Last 24 Hr 97.0 F-98.1 F 59-72 18-22 123-165/81-98 97 HEART: S1S2, RRR, (+) 3/6 SM LUNGS: Clear ABDOMEN: Soft, non-distended, non-tender, normal BS EXTREMITIES: No edema Laboratory Results - last 24 hr 05/25/18 05/25/18 05/26/18 17:54 21:54 07:01 POC Glucometer 117 111 97 05/26/18 11:51 POC Glucometer 107 Current Medications Generic Name Dose Route Start Last Admin Trade Name Freq PRN Reason Stop Dose Admin Acetaminophen 650 mg 05/22/18 13:42 05/22/18 23:13 Tylenol - PO 650 mg Q6H PRN Administration PAIN 1-3 Bethanechol Chloride 25 mg 05/22/18 22:00 05/26/18 07:13 Urecholine - PO 25 mg TID NED Administration Diltiazem HCl 180 mg 05/23/18 10:00 05/26/18 10:02 Cardizem Cd - PO 180 mg DAILY NED Administration Haloperidol 1 mg 05/26/18 11:40 Haldol Liquid - PO TID PRN AGITATION Heparin Sodium (Porcine) 5,000 unit 05/22/18 14:00 05/26/18 07:12 Heparin - SQ 5,000 unit TID NED Administration Insulin Aspart 1 vial 05/22/18 16:30 05/26/18 11:40 Novolog Vial Sliding Scale - SQ Not Given ACHS [facility] Protocol Levothyroxine Sodium 112 mcg 05/25/18 07:00 05/26/18 07:13 Synthroid - PO 112 mcg DAILY@0700 NED Administration Lidocaine 1 patch 05/22/18 16:30 05/26/18 10:02 Lidoderm Patch - TP 1 patch DAILY NED Administration Metoprolol Tartrate 50 mg 05/22/18 22:00 05/26/18 10:02 Lopressor - PO 50 mg BID NED Administration Miscellaneous 1 each 05/22/18 22:00 05/25/18 21:52 Lidoderm Patch Removal MC 1 each DAILY@2200 NED Administration Mycophenolate Mofetil 250 mg 05/22/18 22:00 05/26/18 10:02 Cellcept - PO 250 mg BID NED Administration Tacrolimus 0.5 mg 05/22/18 22:00 05/26/18 10:03 Prograf PO 0.5 mg BID NED Administration Tamsulosin HCl 0.4 mg 05/23/18 08:30 05/26/18 10:02 Flomax - PO 0.4 mg DAILY@0830 NED Administration ASSESSMENT AND PLAN: This is a 78 year old woman with a history of atrial fibrillation, kidney transplant, type 2 DM who presented to the ED because of a fall, dysuria, and urinary frequency. 1. s/p fall with bilateral pubic rami fractures, acute and chronic - Physical therapy - Plan for subacute rehab at discharge 2. Multiple lumbar compression fractures, likely chronic - No intervention indicated 3. Possible acute metabolic encephalopathy, possible dementia - No evidence of infection - RPR negative, B12 normal, TSH high with normal FT4 4. Type 2 DM - Januvia held - Continue Novolog sliding scale 5. History of atrial fibrillation - Continue Lopressor, Cardizem CD - Not on anticoagulation - would not start secondary to risk of falling 6. History of urinary retention - Continue Flomax, Urecholine 7. No evidence of pericardial effusion - Echo shows normal LV, LVEF 60-65%, grade II diastolic dysfunction, normal RV, normal LA, normal RA, mild MR, severe , mild AI, mild PI, no effusion 8. Severe aortic stenosis 9. Hypothyroidism - Continue Synthroid 10. HTN - Continue Lopressor, Cardizem CD 11. AAA - [address] - Outpatient follow up 12. History of renal transplant - Continue Prograf, CellCept 13. Severe malnutrition - Continue Glucerna, ProSource
[2018-05-26] MEDS: LIDOCAINE PATCH REMOVAL MC SCH (22:06)
[2018-05-27] MEDS: BETHANECHOL CHLORIDE 25 MG TABLET PO SCH ×3 (06:59→21:49)
[2018-05-27] MEDS: HEPARIN NA (PORCINE) 5,000 UNITS/ML 1ML VIAL SQ SCH ×3 (06:59→21:49)
[2018-05-27] MEDS: LEVOTHYROXINE NA 112 MCG TABLET (FP) PO SCH (06:59)
[2018-05-27] MEDS ORDERED: INSULIN (NOVOLOG) ASPART 100 UNITS/ML 10ML VIAL ONE (07:05)
[2018-05-27] MEDS: INSULIN SLIDING SCALE (NOVOLOG) 1 VIAL SQ SCH ×4 (07:17→21:57)
[2018-05-27] MEDS: METOPROLOL TARTRATE 50 MG TABLET (FP) PO SCH ×2 (09:19→21:49)
[2018-05-27] MEDS: TAMSULOSIN HCL 0.4 MG CAP PO SCH (09:19)
[2018-05-27] MEDS: TACROLIMUS 0.5 MG CAPSULE PO SCH ×2 (09:23→21:57)
[2018-05-27] MEDS: MYCOPHENOLATE MOFETIL 250 MG CAPSULE PO SCH ×2 (09:23→21:56)
--- NOTE | 2018-05-27 09:50 | PN ---
Progress Note (short form) - Note Progress Note: ORTHOPEDIC SURGERY PROGRESS NOTE Department of Orthopedic Surgery SUBJECTIVE No acute events overnight. Patient with no complaints currently. Pain control improving. Tolerating oral intake. Able to ambulate with physical therapy. PT recommending SNF. Intake & Output 05/25/18 05/26/18 05/27/18 23:59 23:59 23:59 Intake Total 1040 540 Balance 1040 540 Intake: IVPB 0 Oral 1040 540 Other: Voiding Method Incontinent Diaper Diaper # Unmeasured Voids Void 2 2 2 Bowel Movement No No No Active Medications Generic Name Dose Route Start Last Admin Trade Name Freq PRN Reason Stop Dose Admin Acetaminophen 650 mg 05/22/18 13:42 05/22/18 23:13 Tylenol - PO 650 mg Q6H PRN Administration PAIN 1-3 Bethanechol Chloride 25 mg 05/22/18 22:00 05/27/18 06:59 Urecholine - PO 25 mg TID NED Administration Diltiazem HCl 180 mg 05/23/18 10:00 05/27/18 09:19 Cardizem Cd - PO 180 mg DAILY NED Administration Heparin Sodium (Porcine) 5,000 unit 05/22/18 14:00 05/27/18 06:59 Heparin - SQ 5,000 unit TID NED Administration Insulin Aspart 1 vial 05/22/18 16:30 05/27/18 07:17 Novolog Vial Sliding Scale - SQ Not Given A[facility]S [facility] Protocol Levothyroxine Sodium 112 mcg 05/25/18 07:00 05/27/18 06:59 Synthroid - PO 112 mcg DAILY@0700 NED Administration Lidocaine 1 patch 05/22/18 16:30 05/26/18 10:02 Lidoderm Patch - TP 1 patch DAILY NED Administration Metoprolol Tartrate 50 mg 05/22/18 22:00 05/27/18 09:19 Lopressor - PO 50 mg BID NED Administration Miscellaneous 1 each 05/22/18 22:00 05/26/18 22:06 Lidoderm Patch Removal MC 1 each DAILY@2200 NED Administration Mycophenolate Mofetil 250 mg 05/22/18 22:00 05/27/18 09:23 Cellcept - PO 250 mg BID NED Administration Tacrolimus 0.5 mg 05/22/18 22:00 05/27/18 09:23 Prograf PO 0.5 mg BID NED Administration Tamsulosin HCl 0.4 mg 05/23/18 08:30 05/27/18 09:19 Flomax - PO 0.4 mg DAILY@0830 NED Administration Vital Signs (last) Temp Pulse Resp BP Pulse Ox 97.8 F 57 L 18 136/92 98 05/27/18 02:00 05/27/18 02:00 05/27/18 02:00 05/27/18 02:00 05/26/18 21:00 Laboratory (coagulation) PT with INR 13.20 SEC (9.7-13.0) H 05/22/18 07:47 Laboratory 05/25/18 06:45 05/25/18 06:45 PHYSICAL EXAMINATION General: Alert and able to follow commands. Not in acute distress. Lower Extremity: Left hip posterolateral incisional scar with no erythema or signs of infection. Muscle mass equal and symmetric to contralateral side. No masses or effusions noted. No tenderness to palpation. Full passive and active ROM, free from pain. Patient able to move ankle and toes. SILT distally; 2+ DP pulses; Cap refill brisk. DVT Exam: No evidence of DVT seen on physical exam; No cords or calf tenderness ; No significant calf/ankle edema. ASSESSMENT AND PLAN Roslyn Strickland is a 78 year old female with (1) subacute vs chronic right-sided pubic ramus fractures and (2) lumbar spondylosis with multiple vertebral compression fractures - Contininue with PT; WBAT with assistance - PT recs SNF - Pain control - DVT prophylaxis - Elevate HOB, encourage oral intake - Medical management per primary team - Appreciate medical management (Nutrition optimization, decubitus precautions heel/sacrum)
[2018-05-27] MEDS: LIDOCAINE 5% TOPICAL PATCH TP SCH (12:22)
--- NOTE | 2018-05-27 13:41 | PN ---
Teaching Attending Note Name of Resident: Branden Beck ATTENDING PHYSICIAN STATEMENT I saw and evaluated the patient. I reviewed the resident's note and discussed the case with the resident. I agree with the resident's findings and plan as documented. SUBJECTIVE: Patient has no complaints. She appears comfortable. OBJECTIVE: Vital Signs Period Temp Pulse Resp BP Sys/Tripp Pulse Ox Last 24 Hr 97.4 F-98 F 57-64 18-18 116-136/69-92 98 HEART: S1S2, RRR, (+) 3/6 SM LUNGS: Clear ABDOMEN: Soft, non-distended, non-tender, normal BS EXTREMITIES: No edema Laboratory Results - last 24 hr 05/26/18 05/26/18 05/27/18 16:58 20:56 06:19 POC Glucometer 132 150 115 05/27/18 11:16 POC Glucometer 138 Current Medications Generic Name Dose Route Start Last Admin Trade Name Freq PRN Reason Stop Dose Admin Acetaminophen 650 mg 05/22/18 13:42 05/22/18 23:13 Tylenol - PO 650 mg Q6H PRN Administration PAIN 1-3 Bethanechol Chloride 25 mg 05/22/18 22:00 05/27/18 06:59 Urecholine - PO 25 mg TID NED Administration Diltiazem HCl 180 mg 05/23/18 10:00 05/27/18 09:19 Cardizem Cd - PO 180 mg DAILY NED Administration Heparin Sodium (Porcine) 5,000 unit 05/22/18 14:00 05/27/18 06:59 Heparin - SQ 5,000 unit TID NED Administration Insulin Aspart 1 vial 05/22/18 16:30 05/27/18 11:29 Novolog Vial Sliding Scale - SQ Not Given ACHS [facility] Protocol Levothyroxine Sodium 112 mcg 05/25/18 07:00 05/27/18 06:59 Synthroid - PO 112 mcg DAILY@0700 NED Administration Lidocaine 1 patch 05/22/18 16:30 05/27/18 12:22 Lidoderm Patch - TP 1 patch DAILY NED Administration Metoprolol Tartrate 50 mg 05/22/18 22:00 05/27/18 09:19 Lopressor - PO 50 mg BID NED Administration Miscellaneous 1 each 05/22/18 22:00 05/26/18 22:06 Lidoderm Patch Removal MC 1 each DAILY@2200 NED Administration Mycophenolate Mofetil 250 mg 05/22/18 22:00 05/27/18 09:23 Cellcept - PO 250 mg BID NED Administration Tacrolimus 0.5 mg 05/22/18 22:00 05/27/18 09:23 Prograf PO 0.5 mg BID NED Administration Tamsulosin HCl 0.4 mg 05/23/18 08:30 05/27/18 09:19 Flomax - PO 0.4 mg DAILY@0830 NED Administration ASSESSMENT AND PLAN: This is a 78 year old woman with a history of atrial fibrillation, kidney transplant, type 2 DM who presented to the ED because of a fall, dysuria, and urinary frequency. 1. s/p fall with bilateral pubic rami fractures, acute and chronic - Continue physical therapy 2. Multiple lumbar compression fractures, likely chronic - No intervention indicated 3. Possible acute metabolic encephalopathy, possible dementia - No evidence of infection - RPR negative, B12 normal, TSH high with normal FT4 4. Type 2 DM - Januvia held - Continue Novolog sliding scale 5. History of atrial fibrillation - Continue Lopressor, Cardizem CD - Not on anticoagulation - would not start secondary to risk of falling 6. History of urinary retention - Continue Flomax, Urecholine 7. No evidence of pericardial effusion - Echo shows normal LV, LVEF 60-65%, grade II diastolic dysfunction, normal RV, normal LA, normal RA, mild MR, severe , mild AI, mild PI, no effusion 8. Severe aortic stenosis 9. Hypothyroidism - Continue Synthroid 10. HTN - Continue Lopressor, Cardizem CD 11. AAA - [address] - Outpatient follow up 12. History of renal transplant - Continue Prograf, CellCept 13. Severe malnutrition - Continue Glucerna, ProSource 14. Disposition - Ok for discharge to subacute rehab
[2018-05-27] MEDS: POLYETHYLENE GLYCOL 3350 119 GM BTL PO SCH (15:38)
[2018-05-27] MEDS: DOCUSATE SODIUM 100 MG CAPSULE (FP) PO SCH (15:38)
--- NOTE | 2018-05-27 16:21 | PN ---
Physical Exam: SUBJECTIVE: Patient seen and examined at bedside this morning. Patient has been off [place] safety vest for over 24 hours. Home dose of Haloperidol held due to prolonged QTc of 508. Patient has been calm. She denies acute complaints today. OBJECTIVE: Vital Signs Period Temp Pulse Resp BP Sys/Tripp Pulse Ox Last 24 Hr 97.4 F-98.1 F 57-68 18-20 116-143/70-92 98-98 GENERAL: The patient is awake, alert, oriented to self, in no acute distress. HEAD: Normocephalic, atraumatic EYES: PERRL, extraocular movements intact, sclera anicteric. ENT: Oropharynx clear without exudates, moist mucous membranes. NECK: Supple without lymphadenopathy LUNGS: Breath sounds equal, clear to auscultation bilaterally, no wheezes, no crackles. HEART: Regular rate and rhythm, S1, S2 auscultated with holosystolic murmur loudest at left upper sternal border. ABDOMEN: Soft, nontender, nondistended. Normoactive bowel sounds, no guarding, no rebound tenderness. EXTREMITIES: 2+ radial and dorsalis pedis pulses b/l. No edema bilateral lower extremities NEUROLOGICAL: Cranial nerves II through XII grossly intact. No gross focal neurological deficits. SKIN: Warm, dry. Laboratory Results - last 24 hr 05/26/18 05/26/18 05/27/18 16:58 20:56 06:19 POC Glucometer 132 150 115 05/27/18 11:16 POC Glucometer 138 Active Medications Generic Name Dose Route Start Last Admin Trade Name Freq PRN Reason Stop Dose Admin Acetaminophen 650 mg 05/22/18 13:42 05/22/18 23:13 Tylenol - PO 650 mg Q6H PRN Administration PAIN 1-3 Bethanechol Chloride 25 mg 05/22/18 22:00 05/27/18 15:38 Urecholine - PO 25 mg TID NED Administration Diltiazem HCl 180 mg 05/23/18 10:00 05/27/18 09:19 Cardizem Cd - PO 180 mg DAILY NED Administration Docusate Sodium 100 mg 05/27/18 14:00 05/27/18 15:38 Colace - PO 100 mg DAILY NED Administration Heparin Sodium (Porcine) 5,000 unit 05/22/18 14:00 05/27/18 15:36 Heparin - SQ 5,000 unit TID NED Administration Insulin Aspart 1 vial 05/22/18 16:30 05/27/18 11:29 Novolog Vial Sliding Scale - SQ Not Given ACHS [facility] Protocol Levothyroxine Sodium 112 mcg 05/25/18 07:00 05/27/18 06:59 Synthroid - PO 112 mcg DAILY@0700 NED Administration Lidocaine 1 patch 05/22/18 16:30 05/27/18 12:22 Lidoderm Patch - TP 1 patch DAILY NED Administration Metoprolol Tartrate 50 mg 05/22/18 22:00 05/27/18 09:19 Lopressor - PO 50 mg BID NED Administration Miscellaneous 1 each 05/22/18 22:00 05/26/18 22:06 Lidoderm Patch Removal MC 1 each DAILY@2200 NED Administration Mycophenolate Mofetil 250 mg 05/22/18 22:00 05/27/18 09:23 Cellcept - PO 250 mg BID NED Administration Polyethylene Glycol 17 gm 05/27/18 14:00 05/27/18 15:38 Miralax (For Daily Use) - PO 17 gm DAILY NED Administration Senna 1 tab 05/27/18 22:00 Senna - PO HS NED Tacrolimus 0.5 mg 05/22/18 22:00 05/27/18 09:23 Prograf PO 0.5 mg BID NED Administration Tamsulosin HCl 0.4 mg 05/23/18 08:30 05/27/18 09:19 Flomax - PO 0.4 mg DAILY@0830 NDE Administration ASSESSMENT/PLAN: Patient is a 78 year old female with history of Afib (not on anticoagulation), dementia, hypertension, diabetes mellitus, renal transplant (on Tacrolimus and Mycophenolate), presents after fall. Encephalopathy -Patient's son states that patient is conservative at baseline, however endorses recent decline in patient's awareness and mental status. -CT head shows no acute pathology. -Urine culture negative for growth -TSH 5.08. Free T4 1.24 -RPR negative -Fall precautions -[place] safety vest discontinued. Patient currently does not require her home dose of Haloperidol. Will monitor closely. Mechanical fall -CT head negative for acute pathology -CT cervical spine shows mild degenerative arthritis without fracture -Lumbar spine radiograph shows major compression of L1 and partial compression L4 and L5. -CT lumbar spine shows compressin fractures L1, L4, L5 vertebral bodies, likely chronic -Pelvic radiograph shows right superior and inferior pubic rami fracture, possible left inferior pubic ramus fracture. -Cardiac ECHO shows LV normal in size, and systolic function. EF 60- 65%. Grade II diastolic dysfunction noted. Severe aortic valve thickening. No pericardial effusion. -Orthopedic surgery consult (Dr. Boggs) appreciated. No acute surgical intervention at this time -Neurosurgery consult (Dr. Young) appreciated. No acute neurosurgical intervention at this time. -Pain control with Acetaminopen 650mg PO Q6H PRN Diabetes mellitus, non insulin dependent -Holding home medications -Insulin sliding scale ACHS -Fingerstick blood glucose monitoring ACHS Hypothyroidism -Levothyroxine 112mcg PO daily Afib -Not on anticoagulation -Metoprolol 50mg PO BID -Diltiazem 180mg PO daily Renal transplant -Mycophenolate 250mg PO BID -Tacrolimus 0.5mg PO BID Urinary retention -Tamsulosin 0.4mg PO daily -Bethanechol 25mg PO TID Malnutrition -chemical strength tester consult appreciated. -Pro source QD -Glucerna BID to support poor PO intake. Prophylaxis -Heparin 5000u subq TID FEN -No IV fluids. Encourage judicious oral hydration. -Follow CMP -Soft diet. Added Pro source QD, Glucerna BID with petrol tanker driver recommendation. Disposition -Continue care in medical-surgical floor. Patient has no more medicare days for SNF. Patient for discharge home tomorrow with Hipolito WALKER. Visit type - Emergency Visit Emergency Visit: Yes ED Registration Date: 05/22/18 Care time: The patient presented to the Emergency Department on the above date and was hospitalized for further evaluation of their emergent condition. - New Patient This patient is new to me today: No - Critical Care Critical Care patient: No - Discharge Referral Referred to [facility] No
[2018-05-27] MEDS ORDERED: PROCHLORPERAZINE INJECTION 10 MG/2 ML VIAL IVPB ONE (19:59)
[2018-05-27] MEDS: LIDOCAINE PATCH REMOVAL MC SCH (21:50)
[2018-05-27] MEDS ORDERED: PT OWN MED DRAWER 7, Y5N ONE (21:55)
[2018-05-27] MEDS: SENNOSIDES 8.6MG TABLET (FP) PO SCH (22:00)
[2018-05-28] MEDS: BETHANECHOL CHLORIDE 25 MG TABLET PO SCH ×3 (06:38→22:27)
[2018-05-28] MEDS: HEPARIN NA (PORCINE) 5,000 UNITS/ML 1ML VIAL SQ SCH ×3 (06:39→22:27)
[2018-05-28] MEDS: LEVOTHYROXINE NA 112 MCG TABLET (FP) PO SCH (06:45)
[2018-05-28] MEDS: INSULIN SLIDING SCALE (NOVOLOG) 1 VIAL SQ SCH ×4 (07:45→22:28)
[2018-05-28] MEDS ORDERED: PT OWN MED DRAWER 7, Y5N ONE ×3 (08:02→21:12)
--- NOTE | 2018-05-28 08:58 | PN ---
Progress Note (short form) - Note Progress Note: ORTHOPEDIC SURGERY PROGRESS NOTE Department of Orthopedic Surgery SUBJECTIVE No acute events overnight. Patient with no complaints currently. Pain control improving. Tolerating oral intake. Able to ambulate with physical therapy. PT recommending SNF. PHYSICAL EXAMINATION General: Alert and able to follow commands. Not in acute distress. Lower Extremity: Left hip posterolateral incisional scar with no erythema or signs of infection. Muscle mass equal and symmetric to contralateral side. No masses or effusions noted. No tenderness to palpation. Full passive and active ROM, free from pain. Patient able to move ankle and toes. SILT distally; 2+ DP pulses; Cap refill brisk. DVT Exam: No evidence of DVT seen on physical exam; No cords or calf tenderness ; No significant calf/ankle edema. Intake & Output 05/26/18 05/27/18 05/28/18 23:59 23:59 23:59 Intake Total 540 960 150 Output Total 150 Balance 540 810 150 Intake: IVPB 0 Oral 540 960 150 Output: Emesis 150 Other: Voiding Method Diaper Diaper # Unmeasured Voids Void 2 1 2 Bowel Movement No Yes No Body Mass Index (BMI) 23.3 Active Medications Generic Name Dose Route Start Last Admin Trade Name Freq PRN Reason Stop Dose Admin Acetaminophen 650 mg 05/22/18 13:42 05/22/18 23:13 Tylenol - PO 650 mg Q6H PRN Administration PAIN 1-3 Bethanechol Chloride 25 mg 05/22/18 22:00 05/28/18 06:38 Urecholine - PO 25 mg TID NED Administration Diltiazem HCl 180 mg 05/23/18 10:00 05/27/18 09:19 Cardizem Cd - PO 180 mg DAILY NED Administration Docusate Sodium 100 mg 05/27/18 14:00 05/27/18 15:38 Colace - PO 100 mg DAILY NED Administration Heparin Sodium (Porcine) 5,000 unit 05/22/18 14:00 05/28/18 06:39 Heparin - SQ 5,000 unit TID NED Administration Insulin Aspart 1 vial 05/22/18 16:30 05/28/18 07:45 Novolog Vial Sliding Scale - SQ Not Given ACHS [facility] Protocol Levothyroxine Sodium 112 mcg 05/25/18 07:00 05/28/18 06:45 Synthroid - PO 112 mcg DAILY@0700 NED Administration Lidocaine 1 patch 05/22/18 16:30 05/27/18 12:22 Lidoderm Patch - TP 1 patch DAILY NED Administration Metoprolol Tartrate 50 mg 05/22/18 22:00 05/27/18 21:49 Lopressor - PO 50 mg BID NED Administration Miscellaneous 1 each 05/22/18 22:00 05/27/18 21:50 Lidoderm Patch Removal MC 1 each DAILY@2200 NED Administration Mycophenolate Mofetil 250 mg 05/22/18 22:00 05/27/18 21:56 Cellcept - PO 250 mg BID NED Administration Polyethylene Glycol 17 gm 05/27/18 14:00 05/27/18 15:38 Miralax (For Daily Use) - PO 17 gm DAILY NED Administration Senna 1 tab 05/27/18 22:00 05/27/18 22:00 Senna - PO Not Given HS NED Tacrolimus 0.5 mg 05/22/18 22:00 05/27/18 21:57 Prograf PO 0.5 mg BID NED Administration Tamsulosin HCl 0.4 mg 05/23/18 08:30 05/27/18 09:19 Flomax - PO 0.4 mg DAILY@0830 NED Administration Vital Signs (last) Temp Pulse Resp BP Pulse Ox 97.4 F L 60 17 145/75 98 05/28/18 04:00 05/28/18 04:00 05/28/18 04:00 05/28/18 04:00 05/27/18 21:00 Laboratory (coagulation) PT with INR 13.20 SEC (9.7-13.0) H 05/22/18 07:47 Laboratory 05/25/18 06:45 05/25/18 06:45 ASSESSMENT AND PLAN Roslyn Strickland is a 78 year old female with (1) subacute vs chronic right-sided pubic ramus fractures and (2) lumbar spondylosis with multiple vertebral compression fractures - Contininue with PT; WBAT with assistance - PT recs SNF - Pain control - DVT prophylaxis - Elevate HOB, encourage oral intake - Medical management per primary team - Appreciate medical management (Nutrition optimization, decubitus precautions heel/sacrum)
--- NOTE | 2018-05-28 09:00 | PN ---
Teaching Attending Note Name of Resident: Branden Beck ATTENDING PHYSICIAN STATEMENT I saw and evaluated the patient. I reviewed the resident's note and discussed the case with the resident. I agree with the resident's findings and plan as documented. SUBJECTIVE: Patient remains confused. She is cooperative and appears comfortable. OBJECTIVE: Vital Signs Period Temp Pulse Resp BP Sys/Tripp Pulse Ox Last 24 Hr 97.3 F-98.1 F 60-73 17-20 126-145/73-92 98-98 HEART: S1S2, RRR, (+) 3/6 SM LUNGS: Clear ABDOMEN: Soft, non-distended, non-tender, normal BS EXTREMITIES: No edema Laboratory Results - last 24 hr 05/27/18 05/27/18 05/27/18 11:16 16:32 21:48 POC Glucometer 138 133 139 05/28/18 06:36 POC Glucometer 97 Current Medications Generic Name Dose Route Start Last Admin Trade Name Freq PRN Reason Stop Dose Admin Acetaminophen 650 mg 05/22/18 13:42 05/22/18 23:13 Tylenol - PO 650 mg Q6H PRN Administration PAIN 1-3 Bethanechol Chloride 25 mg 05/22/18 22:00 05/28/18 06:38 Urecholine - PO 25 mg TID NED Administration Diltiazem HCl 180 mg 05/23/18 10:00 05/27/18 09:19 Cardizem Cd - PO 180 mg DAILY NED Administration Docusate Sodium 100 mg 05/27/18 14:00 05/27/18 15:38 Colace - PO 100 mg DAILY NED Administration Heparin Sodium (Porcine) 5,000 unit 05/22/18 14:00 05/28/18 06:39 Heparin - SQ 5,000 unit TID NED Administration Insulin Aspart 1 vial 05/22/18 16:30 05/28/18 07:45 Novolog Vial Sliding Scale - SQ Not Given ACHS [facility] Protocol Levothyroxine Sodium 112 mcg 05/25/18 07:00 05/28/18 06:45 Synthroid - PO 112 mcg DAILY@0700 NED Administration Lidocaine 1 patch 05/22/18 16:30 05/27/18 12:22 Lidoderm Patch - TP 1 patch DAILY NED Administration Metoprolol Tartrate 50 mg 05/22/18 22:00 05/27/18 21:49 Lopressor - PO 50 mg BID NED Administration Miscellaneous 1 each 05/22/18 22:00 05/27/18 21:50 Lidoderm Patch Removal MC 1 each DAILY@2200 NED Administration Mycophenolate Mofetil 250 mg 05/22/18 22:00 05/27/18 21:56 Cellcept - PO 250 mg BID NED Administration Polyethylene Glycol 17 gm 05/27/18 14:00 05/27/18 15:38 Miralax (For Daily Use) - PO 17 gm DAILY NED Administration Senna 1 tab 05/27/18 22:00 05/27/18 22:00 Senna - PO Not Given HS NED Tacrolimus 0.5 mg 05/22/18 22:00 05/27/18 21:57 Prograf PO 0.5 mg BID NED Administration Tamsulosin HCl 0.4 mg 05/23/18 08:30 05/27/18 09:19 Flomax - PO 0.4 mg DAILY@0830 NED Administration ASSESSMENT AND PLAN: This is a 78 year old woman with a history of atrial fibrillation, kidney transplant, type 2 DM who presented to the ED because of a fall, dysuria, and urinary frequency. 1. s/p fall with bilateral pubic rami fractures, acute and chronic - Continue physical therapy 2. Multiple lumbar compression fractures, likely chronic - No intervention indicated 3. Possible acute metabolic encephalopathy, possible dementia - No evidence of infection - RPR negative, B12 normal, TSH high with normal FT4 4. Type 2 DM - Januvia held - Continue Novolog sliding scale 5. History of atrial fibrillation - Continue Lopressor, Cardizem CD - Not on anticoagulation - would not start secondary to risk of falling 6. History of urinary retention - Continue Flomax, Urecholine 7. No evidence of pericardial effusion - Echo shows normal LV, LVEF 60-65%, grade II diastolic dysfunction, normal RV, normal LA, normal RA, mild MR, severe , mild AI, mild PI, no effusion 8. Severe aortic stenosis 9. Hypothyroidism - Continue Synthroid 10. HTN - Continue Lopressor, Cardizem CD 11. AAA - [address] - Outpatient follow up 12. History of renal transplant - Continue Prograf, CellCept 13. Severe malnutrition - Continue Glucerna, ProSource 14. Disposition - Plan was for discharge to subacute rehab, but patient has no remaining benefits, so she will be discharged home with home care services
[2018-05-28] MEDS: METOPROLOL TARTRATE 50 MG TABLET (FP) PO SCH ×2 (10:08→22:28)
[2018-05-28] MEDS: TAMSULOSIN HCL 0.4 MG CAP PO SCH (10:08)
[2018-05-28] MEDS: DOCUSATE SODIUM 100 MG CAPSULE (FP) PO SCH (10:08)
[2018-05-28] MEDS: LIDOCAINE 5% TOPICAL PATCH TP SCH (10:09)
[2018-05-28] MEDS: MYCOPHENOLATE MOFETIL 250 MG CAPSULE PO SCH ×2 (10:09→22:27)
[2018-05-28] MEDS: TACROLIMUS 0.5 MG CAPSULE PO SCH ×2 (10:10→22:27)
--- NOTE | 2018-05-28 10:54 | DS ---
Physical Exam: SUBJECTIVE: Patient seen and examined at bedside this morning. She had one bowel movement overnight without hematochezia. Afebrile overnight. She denies acute complaints of shortness of breath, chest pain, palpitations, abdominal pain. OBJECTIVE: Vital Signs Period Temp Pulse Resp BP Sys/Tripp Pulse Ox Last 24 Hr 97.3 F-98.1 F 60-73 17-20 133-145/75-92 98 PHYSICAL EXAM GENERAL: The patient is awake, alert, oriented to self, in no acute distress. HEAD: Normocephalic, atraumatic EYES: PERRL, extraocular movements intact, sclera anicteric. ENT: Oropharynx clear without exudates, moist mucous membranes. NECK: Supple without lymphadenopathy LUNGS: Breath sounds equal, clear to auscultation bilaterally, no wheezes, no crackles. HEART: Regular rate and rhythm, S1, S2 auscultated with holosystolic murmur loudest at left upper sternal border. ABDOMEN: Soft, nontender, nondistended. Normoactive bowel sounds, no guarding, no rebound tenderness. EXTREMITIES: 2+ radial and dorsalis pedis pulses b/l. No edema bilateral lower extremities NEUROLOGICAL: Cranial nerves II through XII grossly intact. No gross focal neurological deficits. SKIN: Warm, dry. LABS Laboratory Results - last 24 hr 05/27/18 05/27/18 05/27/18 11:16 16:32 21:48 POC Glucometer 138 133 139 05/28/18 06:36 POC Glucometer 97 HOSPITAL COURSE: Date of Admission:05/22/18 Date of Discharge: 05/28/18 Patient is a 78 year old female with history of Afib (not on anticoagulation), dementia, hypertension, diabetes mellitus, renal transplant (on Tacrolimus and Mycophenolate), presents after mechanical fall. Chest radiograph showed clear lungs. Urine culture was negative for growth. RPR was negative. B12 within normal limits. TSH was mildy elevated with normal T4. CT head showed no acute pathology. CT cervical spine showed mild degenerative arthritis without fracture. Lumbar spine radiograph showed major compression of L1 and partial compression L4 and L5. CT lumbar spine showed compression fractures of L1, L4, L5 vertebral bodies, likely chronic. Pelvic radiograph showed right superior and inferior pubic rami fracture, possible left inferior pubic ramus fracture. Patient was evaluated by orthopedic surgery, and neurosurgery who discussed no surgical intervention during hospital course. Home medications for hypothyroidism, Afib, chronic urinary retention and immunosuppresants for renal transplant were reinstated. Patient was noted not to be on anticoagulation for Afib. Not started on anticoagulation during hospitalization due to patient's increased risk of fall, and subsequent bleeding. Patient was evaluated by travel registered nurse nicu and Glucerna, Pro Source added to her diet. Patient for discharge home with [facility], and follow up with primary care physician, orthopedic surgeon, and neurosurgeon. Minutes to complete discharge: 45 Discharge Summary Reason For Visit: FALL Current Active Problems Failure to thrive (Acute) Falls (Acute) Weakness (Acute) Condition: Stable - Instructions Diet, Activity, Other Instructions: You were admitted to the hospital due to weakness and a fall. You were evaluated by orthopedic surgeon and neurosurgeon who have recommended no surgical interventions at this time. You are being discharged home. Continue taking your home medications as directed. We have held your home Haloperidol. Discuss reinstating this medication with your primary care physician. You may need an EKG done at your appointment. Follow up with your primary care physician within two - three days after discharge. Follow up with orthopedic surgeon (Dr. Boggs) within one- two weeks after discharge Follow up with neurosurgeon (Dr. Young) within one- two weeks after discharge. Return to the nearest emergency department if you experience any worsening symptoms, fevers, chills, shortness of breath, chest pain, palpitations, abdominal pain, nausea, vomiting. Referrals: Pool Young MD [Staff Physician] - Teddy Boggs DO [Staff Physician] - Disposition: HOME - Home Medications Comprehensive Discharge Medication List: Ambulatory Orders Bethanechol Chloride 25 mg PO DAILY 05/22/18 Diltiazem HCl [Diltiazem 24Hr ER] 180 mg PO DAILY 05/22/18 Metoprolol Tartrate 50 mg PO BID 05/22/18 Mycophenolate Mofetil [Cellcept -] 250 mg PO BID 05/22/18 Sitagliptin Phosphate [Januvia] 25 mg PO DAILY 05/22/18 Tacrolimus Anhydrous [Prograf] 0.5 mg PO Q12H 05/22/18 Tamsulosin HCl [Flomax] 0.4 mg PO DAILY 05/22/18 Levothyroxine [Synthroid -] 112 mcg PO DAILY 05/24/18 This patient is new to me today: No Emergency Visit: Yes ED Registration Date: 05/22/18 Care time: The patient presented to the Emergency Department on the above date and was hospitalized for further evaluation of their emergent condition. Critical Care patient: No - Discharge Referral Referred to [facility] Med P.C.: No
[2018-05-28] MEDS: POLYETHYLENE GLYCOL 3350 119 GM BTL PO SCH (11:30)
--- NOTE | 2018-05-28 11:54 | EKG ---
Test Reason : Blood Pressure : / mmHG Vent. Rate : 059 BPM Atrial Rate : 059 BPM P-R Int : 204 ms QRS Dur : 106 ms QT Int : 450 ms P-R-T Axes : -89 002 087 degrees QTc Int : 445 ms UNUSUAL P AXIS, POSSIBLE ECTOPIC ATRIAL BRADYCARDIA POSSIBLE INFERIOR INFARCT , AGE UNDETERMINED ABNORMAL ECG WHEN COMPARED WITH ECG OF 22-MAY-2018 07:51, ECTOPIC ATRIAL RHYTHM HAS REPLACED SINUS RHYTHM QT HAS SHORTENED Confirmed by FOZIA REYNAGA, ARLINE ([id number]) on 05/28/2018 11:54:31 AM Referred By: Confirmed By:ARLINE MARCELO MD
[2018-05-28] MEDS: LIDOCAINE PATCH REMOVAL MC SCH (22:27)
[2018-05-28] MEDS: SENNOSIDES 8.6MG TABLET (FP) PO SCH (22:27)
[2018-05-29] MEDS ORDERED: PT OWN MED DRAWER 7, Y5N ONE ×2 (05:41→06:48)
[2018-05-29] MEDS: HEPARIN NA (PORCINE) 5,000 UNITS/ML 1ML VIAL SQ SCH ×3 (06:05→22:58)
[2018-05-29] MEDS: BETHANECHOL CHLORIDE 25 MG TABLET PO SCH ×3 (06:06→22:58)
[2018-05-29] MEDS: INSULIN SLIDING SCALE (NOVOLOG) 1 VIAL SQ SCH ×4 (06:06→22:58)
[2018-05-29] MEDS: LEVOTHYROXINE NA 112 MCG TABLET (FP) PO SCH (06:41)
[2018-05-29] MEDS: TAMSULOSIN HCL 0.4 MG CAP PO SCH (08:58)
[2018-05-29] MEDS: LIDOCAINE 5% TOPICAL PATCH TP SCH (10:32)
[2018-05-29] MEDS: DOCUSATE SODIUM 100 MG CAPSULE (FP) PO SCH (10:35)
[2018-05-29] MEDS: METOPROLOL TARTRATE 50 MG TABLET (FP) PO SCH ×2 (10:35→22:57)
[2018-05-29] MEDS: MYCOPHENOLATE MOFETIL 250 MG CAPSULE PO SCH ×2 (10:36→22:57)
[2018-05-29] MEDS: TACROLIMUS 0.5 MG CAPSULE PO SCH ×2 (10:37→22:58)
--- NOTE | 2018-05-29 11:14 | PN ---
Progress Note (short form) - Note Progress Note: ORTHOPEDIC SURGERY PROGRESS NOTE Department of Orthopedic Surgery SUBJECTIVE No acute events overnight. Patient with no complaints currently. Pain control improving. Tolerating oral intake. Able to ambulate with physical therapy. PT recommending SNF. PHYSICAL EXAMINATION General: Alert and able to follow commands. Not in acute distress. Lower Extremity: Left hip posterolateral incisional scar with no erythema or signs of infection. Muscle mass equal and symmetric to contralateral side. No masses or effusions noted. No tenderness to palpation. Full passive and active ROM, free from pain. Patient able to move ankle and toes. SILT distally; 2+ DP pulses; Cap refill brisk. DVT Exam: No evidence of DVT seen on physical exam; No cords or calf tenderness ; No significant calf/ankle edema. Intake & Output 05/27/18 05/28/18 05/29/18 23:59 23:59 23:59 Intake Total 960 1250 Output Total 150 Balance 810 1250 Intake: IVPB 50 Oral 960 1200 Output: Emesis 150 Other: Voiding Method Diaper Incontinent Incontinent # Unmeasured Voids Void 1 1 1 Bowel Movement Yes No Body Mass Index (BMI) 23.3 Active Medications Generic Name Dose Route Start Last Admin Trade Name Freq PRN Reason Stop Dose Admin Acetaminophen 650 mg 05/22/18 13:42 05/22/18 23:13 Tylenol - PO 650 mg Q6H PRN Administration PAIN 1-3 Bethanechol Chloride 25 mg 05/22/18 22:00 05/29/18 06:06 Urecholine - PO 25 mg TID NED Administration Diltiazem HCl 180 mg 05/23/18 10:00 05/29/18 10:35 Cardizem Cd - PO 180 mg DAILY NED Administration Docusate Sodium 100 mg 05/27/18 14:00 05/29/18 10:35 Colace - PO 100 mg DAILY NED Administration Heparin Sodium (Porcine) 5,000 unit 05/22/18 14:00 05/29/18 06:05 Heparin - SQ 5,000 unit TID NED Administration Insulin Aspart 1 vial 05/22/18 16:30 05/29/18 06:06 Novolog Vial Sliding Scale - SQ Not Given ACHS [facility] Protocol Levothyroxine Sodium 112 mcg 05/25/18 07:00 05/29/18 06:41 Synthroid - PO 112 mcg DAILY@0700 NED Administration Lidocaine 1 patch 05/22/18 16:30 05/29/18 10:32 Lidoderm Patch - TP 1 patch DAILY NED Administration Metoprolol Tartrate 50 mg 05/22/18 22:00 05/29/18 10:35 Lopressor - PO 50 mg BID NED Administration Miscellaneous 1 each 05/22/18 22:00 05/28/18 22:27 Lidoderm Patch Removal MC 1 each DAILY@2200 NED Administration Mycophenolate Mofetil 250 mg 05/22/18 22:00 05/29/18 10:36 Cellcept - PO 250 mg BID NED Administration Polyethylene Glycol 17 gm 05/27/18 14:00 05/28/18 11:30 Miralax (For Daily Use) - PO Not Given DAILY NED Senna 1 tab 05/27/18 22:00 05/28/18 22:27 Senna - PO 1 tab HS NED Administration Tacrolimus 0.5 mg 05/22/18 22:00 05/29/18 10:37 Prograf PO 0.5 mg BID NED Administration Tamsulosin HCl 0.4 mg 05/23/18 08:30 05/29/18 08:58 Flomax - PO 0.4 mg DAILY@0830 NED Administration Vital Signs (last) Temp Pulse Resp BP Pulse Ox 97 F L 84 18 129/81 95 05/29/18 10:14 05/29/18 10:14 05/29/18 10:14 05/29/18 10:14 05/28/18 21:00 Laboratory (coagulation) PT with INR 13.20 SEC (9.7-13.0) H 05/22/18 07:47 Laboratory 05/25/18 06:45 05/25/18 06:45 ASSESSMENT AND PLAN Roslyn Strickland is a 78 year old female with (1) subacute vs chronic right-sided pubic ramus fractures and (2) lumbar spondylosis with multiple vertebral compression fractures - Contininue with PT; WBAT with assistance - PT recs SNF - Pain control - DVT prophylaxis - Elevate HOB, encourage oral intake - Medical management per primary team - Appreciate medical management (Nutrition optimization, decubitus precautions heel/sacrum) - No orthopedic intervention at this time.
[2018-05-29] MEDS: POLYETHYLENE GLYCOL 3350 119 GM BTL PO SCH (12:07)
[2018-05-29] MEDS: ACETAMINOPHEN 325 MG TABLET (FP) PO PRN (13:36)
--- NOTE | 2018-05-29 14:37 | PN ---
Physical Exam: SUBJECTIVE: Patient seen and examined. She is confused. She has no complaints. She appears comfortable lying in bed. OBJECTIVE: Vital Signs Period Temp Pulse Resp BP Sys/Tripp Pulse Ox Last 24 Hr 97 F-98.5 F 56-84 18-18 129-154/59-87 95-98 GENERAL: The patient is awake, alert, and confused, in no acute distress. LUNGS: Breath sounds equal, clear to auscultation bilaterally, no wheezes, no crackles, no accessory muscle use. HEART: Regular rate and rhythm, S1, S2, (+) 3/6 SM. ABDOMEN: Soft, nontender, nondistended, normoactive bowel sounds, no guarding, no rebound, no hepatosplenomegaly, no masses. EXTREMITIES: 2+ pulses, warm, well-perfused, no edema. Laboratory Results - last 24 hr 05/28/18 05/28/18 05/29/18 18:01 22:25 06:05 POC Glucometer 106 97 116 05/29/18 11:17 POC Glucometer 121 Active Medications Generic Name Dose Route Start Last Admin Trade Name Freq PRN Reason Stop Dose Admin Acetaminophen 650 mg 05/22/18 13:42 05/29/18 13:36 Tylenol - PO 650 mg Q6H PRN Administration PAIN 1-3 Bethanechol Chloride 25 mg 05/22/18 22:00 05/29/18 13:35 Urecholine - PO 25 mg TID NED Administration Diltiazem HCl 180 mg 05/23/18 10:00 05/29/18 10:35 Cardizem Cd - PO 180 mg DAILY NED Administration Docusate Sodium 100 mg 05/27/18 14:00 05/29/18 10:35 Colace - PO 100 mg DAILY NED Administration Heparin Sodium (Porcine) 5,000 unit 05/22/18 14:00 05/29/18 13:59 Heparin - SQ 5,000 unit TID [facility] Administration Insulin Aspart 1 vial 05/22/18 16:30 05/29/18 11:28 Novolog Vial Sliding Scale - SQ Not Given ACHS [facility] Protocol Levothyroxine Sodium 112 mcg 05/25/18 07:00 05/29/18 06:41 Synthroid - PO 112 mcg DAILY@0700 [facility] Administration Lidocaine 1 patch 05/22/18 16:30 05/29/18 10:32 Lidoderm Patch - TP 1 patch DAILY NED Administration Metoprolol Tartrate 50 mg 05/22/18 22:00 05/29/18 10:35 Lopressor - PO 50 mg BID NED Administration Miscellaneous 1 each 05/22/18 22:00 05/28/18 22:27 Lidoderm Patch Removal MC 1 each DAILY@2200 NED Administration Mycophenolate Mofetil 250 mg 05/22/18 22:00 05/29/18 10:36 Cellcept - PO 250 mg BID NED Administration Polyethylene Glycol 17 gm 05/27/18 14:00 05/29/18 12:07 Miralax (For Daily Use) - PO 17 gm DAILY NED Administration Senna 1 tab 05/27/18 22:00 05/28/18 22:27 Senna - PO 1 tab HS NED Administration Tacrolimus 0.5 mg 05/22/18 22:00 05/29/18 10:37 Prograf PO 0.5 mg BID NED Administration Tamsulosin HCl 0.4 mg 05/23/18 08:30 05/29/18 08:58 Flomax - PO 0.4 mg DAILY@0830 NED Administration ASSESSMENT/PLAN: This is a 78 year old woman with a history of atrial fibrillation, kidney transplant, type 2 DM who presented to the ED because of a fall, dysuria, and urinary frequency. 1. s/p fall with bilateral pubic rami fractures, acute and chronic - Continue physical therapy 2. Multiple lumbar compression fractures, likely chronic - No intervention indicated 3. Possible acute metabolic encephalopathy, possible dementia - No evidence of infection - RPR negative, B12 normal, TSH high with normal FT4 4. Type 2 DM - Januvia held - Continue Novolog sliding scale 5. History of atrial fibrillation - Continue Lopressor, Cardizem CD - Not on anticoagulation - would not start secondary to risk of falling 6. History of urinary retention - Continue Flomax, Urecholine 7. No evidence of pericardial effusion - Echo shows normal LV, LVEF 60-65%, grade II diastolic dysfunction, normal RV, normal LA, normal RA, mild MR, severe , mild AI, mild PI, no effusion 8. Severe aortic stenosis 9. Hypothyroidism - Continue Synthroid 10. HTN - Continue Lopressor, Cardizem CD 11. AAA - [address] - Outpatient follow up 12. History of renal transplant - Continue Prograf, CellCept 13. Severe malnutrition - Continue Glucerna, ProSource 14. Disposition - Subacute rehab recommended, but patient has no remaining benefits, so she was discharged home with home care services yesterday, but her son has appealed Visit type - Emergency Visit Emergency Visit: Yes ED Registration Date: 05/22/18 Care time: The patient presented to the Emergency Department on the above date and was hospitalized for further evaluation of their emergent condition. - New Patient This patient is new to me today: No - Critical Care Critical Care patient: No - Discharge Referral Referred to [facility] Med P.C.: No
[2018-05-29] MEDS ORDERED: INSULIN (NOVOLOG) ASPART 100 UNITS/ML 10ML VIAL ONE (20:57)
[2018-05-29] MEDS: LIDOCAINE PATCH REMOVAL MC SCH (22:57)
[2018-05-29] MEDS: SENNOSIDES 8.6MG TABLET (FP) PO SCH (22:58)
[2018-05-30] MEDS: ACETAMINOPHEN 325 MG TABLET (FP) PO PRN ×2 (00:05→13:34)
[2018-05-30] MEDS: BETHANECHOL CHLORIDE 25 MG TABLET PO SCH ×2 (06:16→13:31)
[2018-05-30] MEDS: HEPARIN NA (PORCINE) 5,000 UNITS/ML 1ML VIAL SQ SCH ×2 (06:16→13:31)
[2018-05-30] MEDS: INSULIN SLIDING SCALE (NOVOLOG) 1 VIAL SQ SCH ×3 (06:16→16:51)
[2018-05-30] MEDS: LEVOTHYROXINE NA 112 MCG TABLET (FP) PO SCH (06:20)
[2018-05-30] MEDS ORDERED: PT OWN MED DRAWER 7, Y5N ONE (06:44)
--- NOTE | 2018-05-30 09:23 | PN ---
Physical Exam: SUBJECTIVE: Patient seen and examined. No events overnight. Offers no complaints. OBJECTIVE: Vital Signs Period Temp Pulse Resp BP Sys/Tripp Pulse Ox Last 24 Hr 97 F-98.5 F 56-84 17-18 108-146/57-93 98 GENERAL: The patient is awake, alert, oriented to self, in no acute distress. HEAD: Normocephalic, atraumatic EYES: PERRL, extraocular movements intact, sclera anicteric. ENT: Oropharynx clear without exudates, moist mucous membranes. NECK: Supple without lymphadenopathy LUNGS: Breath sounds equal, clear to auscultation bilaterally, no wheezes, no crackles. HEART: Regular rate and rhythm, S1, S2 auscultated with holosystolic murmur loudest at left upper sternal border. ABDOMEN: Soft, nontender, nondistended. Normoactive bowel sounds, no guarding, no rebound tenderness. EXTREMITIES: 2+ radial and dorsalis pedis pulses b/l. No edema bilateral lower extremities NEUROLOGICAL: Cranial nerves II through XII grossly intact. No gross focal neurological deficits. Laboratory Results - last 24 hr 05/29/18 05/29/18 05/29/18 11:17 16:09 22:55 POC Glucometer 121 129 107 05/30/18 05:55 POC Glucometer 118 Active Medications Generic Name Dose Route Start Last Admin Trade Name Freq PRN Reason Stop Dose Admin Acetaminophen 650 mg 05/22/18 13:42 05/30/18 00:05 Tylenol - PO 650 mg Q6H PRN Administration PAIN 1-3 Bethanechol Chloride 25 mg 05/22/18 22:00 05/30/18 06:16 Urecholine - PO 25 mg TID NED Administration Diltiazem HCl 180 mg 05/23/18 10:00 05/29/18 10:35 Cardizem Cd - PO 180 mg DAILY NED Administration Docusate Sodium 100 mg 05/27/18 14:00 05/29/18 10:35 Colace - PO 100 mg DAILY NED Administration Heparin Sodium (Porcine) 5,000 unit 05/22/18 14:00 05/30/18 06:16 Heparin - SQ 5,000 unit TID NED Administration Insulin Aspart 1 vial 05/22/18 16:30 05/30/18 06:16 Novolog Vial Sliding Scale - SQ Not Given ACHS [facility] Protocol Levothyroxine Sodium 112 mcg 05/25/18 07:00 05/30/18 06:20 Synthroid - PO 112 mcg DAILY@0700 NED Administration Lidocaine 1 patch 05/22/18 16:30 05/29/18 10:32 Lidoderm Patch - TP 1 patch DAILY NED Administration Metoprolol Tartrate 50 mg 05/22/18 22:00 05/29/18 22:57 Lopressor - PO 50 mg BID NED Administration Miscellaneous 1 each 05/22/18 22:00 05/29/18 22:57 Lidoderm Patch Removal MC 1 each DAILY@2200 NED Administration Mycophenolate Mofetil 250 mg 05/22/18 22:00 05/29/18 22:57 Cellcept - PO 250 mg BID NED Administration Polyethylene Glycol 17 gm 05/27/18 14:00 05/29/18 12:07 Miralax (For Daily Use) - PO 17 gm DAILY NED Administration Senna 1 tab 05/27/18 22:00 05/29/18 22:58 Senna - PO 1 tab HS NED Administration Tacrolimus 0.5 mg 05/22/18 22:00 05/29/18 22:58 Prograf PO 0.5 mg BID NED Administration Tamsulosin HCl 0.4 mg 05/23/18 08:30 05/29/18 08:58 Flomax - PO 0.4 mg DAILY@0830 NED Administration ASSESSMENT/PLAN: This is a 78 year old woman with a history of atrial fibrillation, kidney transplant, type 2 DM who presented to the ED because of a fall, dysuria, and urinary frequency #S/p fall with bilateral pubic rami fractures, acute and chronic - Continue physical therapy #Multiple lumbar compression fractures -likely chronic -No intervention indicated #Possible acute metabolic encephalopathy, possible dementia - No evidence of infection - RPR negative, B12 normal, TSH high with normal FT4 #Type 2 DM - Januvia held - Continue Novolog sliding scale #History of atrial fibrillation - Continue Lopressor, Cardizem CD - Not on anticoagulation - would not start secondary to risk of falling #History of urinary retention -Continue Flomax, Urecholine #No evidence of pericardial effusion - Echo shows normal LV, LVEF 60-65%, grade II diastolic dysfunction, normal RV, normal LA, normal RA, mild MR, severe , mild AI, mild PI, no effusion #Hypothyroidism -Continue Synthroid #HTN -Continue Lopressor, Cardizem CD #AAA - [address] - Outpatient follow up #History of renal transplant -Continue Prograf, CellCept #Severe malnutrition -Continue Glucerna, ProSource #Dispo Subacute rehab recommended, but patient has no remaining benefits, so she was discharged home with home care services yesterday, but her son has appealed
[2018-05-30] MEDS: TAMSULOSIN HCL 0.4 MG CAP PO SCH (09:44)
[2018-05-30] MEDS: MYCOPHENOLATE MOFETIL 250 MG CAPSULE PO SCH (09:45)
[2018-05-30] MEDS: DOCUSATE SODIUM 100 MG CAPSULE (FP) PO SCH (09:45)
[2018-05-30] MEDS: LIDOCAINE 5% TOPICAL PATCH TP SCH (09:45)
[2018-05-30] MEDS: METOPROLOL TARTRATE 50 MG TABLET (FP) PO SCH (09:45)
[2018-05-30] MEDS: POLYETHYLENE GLYCOL 3350 119 GM BTL PO SCH (09:46)
[2018-05-30] MEDS: TACROLIMUS 0.5 MG CAPSULE PO SCH (09:47)
[2018-05-30 13:33] VITALS: BP 155/91; PULSE 65; TEMP 98.1
--- NOTE | 2018-05-30 15:55 | DS ---
Physical Exam: SUBJECTIVE: Patient seen and examined. No events overnight. Patient offers no complaints. OBJECTIVE: Vital Signs Period Temp Pulse Resp BP Sys/Tripp Pulse Ox Last 24 Hr 97.2 F-98.5 F 56-74 17-18 108-155/57-91 98-98 PHYSICAL EXAM GENERAL: The patient is awake, alert, oriented to self, in no acute distress. HEAD: Normocephalic, atraumatic EYES: PERRL, extraocular movements intact, sclera anicteric. ENT: Oropharynx clear without exudates, moist mucous membranes. NECK: Supple without lymphadenopathy LUNGS: Breath sounds equal, clear to auscultation bilaterally, no wheezes, no crackles. HEART: Regular rate and rhythm, S1, S2 auscultated with holosystolic murmur loudest at left upper sternal border. ABDOMEN: Soft, nontender, nondistended. Normoactive bowel sounds, no guarding, no rebound tenderness. EXTREMITIES: 2+ radial and dorsalis pedis pulses b/l. No edema bilateral lower extremities NEUROLOGICAL: Cranial nerves II through XII grossly intact. No gross focal neurological deficits. LABS Laboratory Results - last 24 hr 05/29/18 05/29/18 05/30/18 16:09 22:55 05:55 POC Glucometer 129 107 118 05/30/18 11:06 POC Glucometer 118 HOSPITAL COURSE: Date of Admission:05/22/18 Patient is a 78 year old female with history of Afib (not on anticoagulation), dementia, hypertension, diabetes mellitus, renal transplant (on Tacrolimus and Mycophenolate), presents after mechanical fall. Chest radiograph showed clear lungs. Urine culture was negative for growth. RPR was negative. B12 within normal limits. TSH was mildy elevated with normal T4. CT head showed no acute pathology. CT cervical spine showed mild degenerative arthritis without fracture. Lumbar spine radiograph showed major compression of L1 and partial compression L4 and L5. CT lumbar spine showed compression fractures of L1, L4, L5 vertebral bodies, likely chronic. Pelvic radiograph showed right superior and inferior pubic rami fracture, possible left inferior pubic ramus fracture. Patient was evaluated by orthopedic surgery, and neurosurgery who discussed no surgical intervention during hospital course. Home medications for hypothyroidism, Afib, chronic urinary retention and immunosuppresants for renal transplant were reinstated. Patient was noted not to be on anticoagulation for Afib. Not started on anticoagulation during hospitalization due to patient's increased risk of fall, and subsequent bleeding. Patient was evaluated by certified registered nurse practitioner and Glucerna, Pro Source added to her diet. Patient for discharge home with [facility], and follow up with primary care physician, orthopedic surgeon, and neurosurgeon. Date of Discharge: 05/30/18 Minutes to complete discharge: 35 Discharge Summary Reason For Visit: FALL Current Active Problems Failure to thrive (Acute) Falls (Acute) Weakness (Acute) Condition: Stable - Instructions Diet, Activity, Other Instructions: You were admitted to the hospital due to weakness and a fall. You were evaluated by orthopedic surgeon and neurosurgeon who have recommended no surgical interventions at this time. You are being discharged home. Continue taking your home medications as directed. We have held your home Haloperidol. Discuss reinstating this medication with your primary care physician. You may need an EKG done at your appointment. Follow up with your primary care physician within two - three days after discharge. Follow up with orthopedic surgeon (Dr. Boggs) within one- two weeks after discharge Follow up with neurosurgeon (Dr. Young) within one- two weeks after discharge. Return to the nearest emergency department if you experience any worsening symptoms, fevers, chills, shortness of breath, chest pain, palpitations, abdominal pain, nausea, vomiting. Referrals: Pool Young MD [Staff Physician] - 1 Week Teddy Boggs DO [Staff Physician] - 1 Week Disposition: HOME - Home Medications Comprehensive Discharge Medication List: Ambulatory Orders Bethanechol Chloride 25 mg PO DAILY 05/22/18 Diltiazem HCl [Diltiazem 24Hr ER] 180 mg PO DAILY 05/22/18 Metoprolol Tartrate 50 mg PO BID 05/22/18 Mycophenolate Mofetil [Cellcept -] 250 mg PO BID 05/22/18 Sitagliptin Phosphate [Januvia] 25 mg PO DAILY 05/22/18 Tacrolimus Anhydrous [Prograf] 0.5 mg PO Q12H 05/22/18 Tamsulosin HCl [Flomax] 0.4 mg PO DAILY 05/22/18 Levothyroxine [Synthroid -] 112 mcg PO DAILY 05/24/18 This patient is new to me today: Yes Date on this admission: 05/30/18 Emergency Visit: Yes ED Registration Date: 05/22/18 Care time: The patient presented to the Emergency Department on the above date and was hospitalized for further evaluation of their emergent condition. Critical Care patient: No - Discharge Referral Referred to [facility] Med P.C.: No
--- NOTE | 2018-05-30 16:43 | PN ---
Teaching Attending Note Name of Resident: Freeman Marin ATTENDING PHYSICIAN STATEMENT I saw and evaluated the patient. I reviewed the resident's note and discussed the case with the resident. I agree with the resident's findings and plan as documented. SUBJECTIVE: Patient appears comfortable lying in bed. She denies pain. She remains confused. OBJECTIVE: Vital Signs Period Temp Pulse Resp BP Sys/Tripp Pulse Ox Last 24 Hr 97.2 F-98.5 F 56-74 17-18 108-155/57-91 98-98 HEART: S1S2, RRR, (+) 3/6 SM LUNGS: Clear ABDOMEN: Soft, non-tender, non-distended, normal BS EXTREMITIES: No edema Laboratory Results - last 24 hr 05/29/18 05/30/18 05/30/18 22:55 05:55 11:06 POC Glucometer 107 118 118 05/30/18 16:03 POC Glucometer 200 Current Medications Generic Name Dose Route Start Last Admin Trade Name Freq PRN Reason Stop Dose Admin Acetaminophen 650 mg 05/22/18 13:42 05/30/18 13:34 Tylenol - PO 650 mg Q6H PRN Administration PAIN 1-3 Bethanechol Chloride 25 mg 05/22/18 22:00 05/30/18 13:31 Urecholine - PO 25 mg TID NED Administration Diltiazem HCl 180 mg 05/23/18 10:00 05/30/18 09:45 Cardizem Cd - PO 180 mg DAILY NED Administration Docusate Sodium 100 mg 05/27/18 14:00 05/30/18 09:45 Colace - PO 100 mg DAILY NED Administration Heparin Sodium (Porcine) 5,000 unit 05/22/18 14:00 05/30/18 13:31 Heparin - SQ 5,000 unit TID NED Administration Insulin Aspart 1 vial 05/22/18 16:30 05/30/18 11:44 Novolog Vial Sliding Scale - SQ Not Given ACHS [facility] Protocol Levothyroxine Sodium 112 mcg 05/25/18 07:00 05/30/18 06:20 Synthroid - PO 112 mcg DAILY@0700 NED Administration Lidocaine 1 patch 05/22/18 16:30 05/30/18 09:45 Lidoderm Patch - TP 1 patch DAILY NED Administration Metoprolol Tartrate 50 mg 05/22/18 22:00 05/30/18 09:45 Lopressor - PO 50 mg BID NED Administration Miscellaneous 1 each 05/22/18 22:00 05/29/18 22:57 Lidoderm Patch Removal MC 1 each DAILY@2200 NED Administration Mycophenolate Mofetil 250 mg 05/22/18 22:00 05/30/18 09:45 Cellcept - PO 250 mg BID NED Administration Polyethylene Glycol 17 gm 05/27/18 14:00 05/30/18 09:46 Miralax (For Daily Use) - PO 17 gm DAILY NED Administration Senna 1 tab 05/27/18 22:00 05/29/18 22:58 Senna - PO 1 tab HS NED Administration Tacrolimus 0.5 mg 05/22/18 22:00 05/30/18 09:47 Prograf PO 0.5 mg BID NED Administration Tamsulosin HCl 0.4 mg 05/23/18 08:30 05/30/18 09:44 Flomax - PO 0.4 mg DAILY@0830 NED Administration ASSESSMENT AND PLAN: This is a 78 year old woman with a history of atrial fibrillation, kidney transplant, type 2 DM who presented to the ED because of a fall, dysuria, and urinary frequency. 1. s/p fall with bilateral pubic rami fractures, acute and chronic - Continue physical therapy 2. Multiple lumbar compression fractures, likely chronic - No intervention indicated 3. Possible acute metabolic encephalopathy, possible dementia - No evidence of infection - RPR negative, B12 normal, TSH high with normal FT4 4. Type 2 DM - Januvia held - Continue Novolog sliding scale 5. History of atrial fibrillation - Continue Lopressor, Cardizem CD - Not on anticoagulation - would not start secondary to risk of falling 6. History of urinary retention - Continue Flomax, Urecholine 7. No evidence of pericardial effusion - Echo shows normal LV, LVEF 60-65%, grade II diastolic dysfunction, normal RV, normal LA, normal RA, mild MR, severe , mild AI, mild PI, no effusion 8. Severe aortic stenosis 9. Hypothyroidism - Continue Synthroid 10. HTN - Continue Lopressor, Cardizem CD 11. AAA - [address] - Outpatient follow up 12. History of renal transplant - Continue Prograf, CellCept 13. Severe malnutrition - Continue Glucerna, ProSource 14. Disposition - Ok for discharge home today with home care services
== END 2018-05-30 18:00 | disposition home health service (06) | DRG 535 ==
LOC: JER 06:26 → JERBED 10:00 → J5S 15:09
PROVIDERS: ATTEND Internal Medicine
DX: S32.501A Unspecified fracture of right pubis, initial encounter for closed fracture (principal); G93.41 Metabolic encephalopathy; E43 Unspecified severe protein-calorie malnutrition; S32.019A Unspecified fracture of first lumbar vertebra, initial encounter for closed fracture; S32.049A Unspecified fracture of fourth lumbar vertebra, initial encounter for closed fracture; S32.059A Unspecified fracture of fifth lumbar vertebra, initial encounter for closed fracture; Z94.0 Kidney transplant status; R64 Cachexia; E46 Unspecified protein-calorie malnutrition; S32.592A Other specified fracture of left pubis, initial encounter for closed fracture; S32.591A Other specified fracture of right pubis, initial encounter for closed fracture; E11.9 Type 2 diabetes mellitus without complications; F03.90 Unspecified dementia, unspecified severity, without behavioral disturbance, psychotic disturbance, mood disturbance, and anxiety; I48.91 Unspecified atrial fibrillation; E03.9 Hypothyroidism, unspecified; I35.0 Nonrheumatic aortic (valve) stenosis; W19.XXXA Unspecified fall, initial encounter; Y93.9 Activity, unspecified; Y92.89 Other specified places as the place of occurrence of the external cause; Y99.9 Unspecified external cause status; R62.7 Adult failure to thrive; R53.1 Weakness; R33.9 Retention of urine, unspecified
CPT/HCPCS: 36415; 70450-TC; 71045-TC-FY; 72100-TC-FY; 72125-TC; 72131-TC; 72170-TC-FY; 74018-TC-FY; 74176-TC; 80048; 80053; 81003; 81015; 82550; 82553; 82607; 82962; 83735; 84100; 84439; 84443; 84484; 85025; 85027; 85610; 86593; 87086; 93005; 93010; 93306-TC; 97116-GP; 97161-GP; 99283-25; J1644; J7030; J7517